=== PATIENT | female | born 1970 | race Caucasian/White ===

== ENCOUNTER → 2018-03-01 11:30 | Outpatient (CLI) | payer OTHER, SELFPAY ==
[2018-03-01 12:40] LABS: Absolute Lymphocyte Count 1.39 X10^3/ul (0.83-4.51); Absolute Neutrophil Count 3.9 X10^3/uL (2.0-7.7); Basophil# 0.02 X10^3/uL; Basophil% 0.3 % (0-1); Eosinophil# 0.07 X10^3/uL; Eosinophils% 1.2 % (0-5); Hematocrit 41.7 % (37-47); Hemoglobin 13.4 g/dl (12.0-15.0); Lymphocyte # 1.39 X10^3/ul (4.0); Lymphocyte % 23.1 % (19-41); Mean Corp Hgb Conc 32.1 g/gl (32-36); Mean Corpuscular Hgb 29.1 pg (27.0-32.0); Mean Corpuscular Volume 90.5 fL (81-99); Mean Platelet Vol. 12.5 fl (6.2-12.0); Monocyte# 0.66 X10^3/uL; Monocyte% 10.9 % (0-10); Neutrophil # 3.88 X10^3/uL (2.7-7.7); Neutrophil % 64.3 % (47-70); Platelet Count 220 K/mm3 (150-450); RBC Distribution Width CV 14.6 % (11.6-14.6); RBC Distribution Width SD 47.7 fl (35.1-43.9); Red Blood Count 4.61 M/mm3 (4.2-5.4)
[2018-03-01 12:42] LABS: POSITIVE COUNT NO; POSITIVE DIFFERENTIAL NO; POSITIVE MORPHOLOGY NO
[2018-03-01 13:19] LABS: Anion Gap 8 (5-15); BUN 12 mg/dL (7-18); BUN/Creat Ratio 16.5 RATIO (10-20); Calcium,Total 9.1 mg/dL (8.5-10.1); Chloride 108 mmol/L (98-107); Creatinine, Serum 0.73 mg/dL (0.55-1.02); EST Glomerular Filtration Rate 91 mL/min (>60); Est Glom Filt Rate - Afr Amer 110 mL/min (>60); Glucose 90 mg/dL (74-106); Magnesium 2.2 mg/dL (1.6-2.6); Potassium 4.3 mmol/L (3.5-5.1); Sodium Level 141 mmol/L (136-145); T4 Free Direct 1.09 ng/dL (0.76-1.46)
== END ==
PROVIDERS: Family Provider Family Medicine; PCP Family Medicine; Referring Provider Nurse Practitioner Family; Visit Provider Nurse Practitioner Family
DX: R00.2 Palpitations (principal)
CPT/HCPCS: 36415; 80048; 83735; 84439; 84443; 85025

== ENCOUNTER → 2018-03-01 13:12 | Outpatient (CLI) | payer OTHER, SELFPAY | PROVIDERS: Family Provider Family Medicine; PCP Family Medicine; Referring Provider Nurse Practitioner Family; Visit Provider Nurse Practitioner Family | DX: R00.2 Palpitations (principal) | CPT/HCPCS: 93225; 93226 ==

== ENCOUNTER → 2019-10-10 08:10 | Outpatient (CLI) | payer OTHER, SELFPAY ==
[2018-03-17 15:23] VITALS: BMI 30.9
[2019-10-10 10:25] LABS: Absolute Lymphocyte Count 1.54 X10^3/uL (0.83-4.51); Absolute Neutrophil Count 3.1 X10^3/uL (2.0-7.7); Basophil# 0.04 X10^3/uL; Basophil% 0.8 % (0-1); Eosinophils% 1.9 % (0-5); Hematocrit 37.7 % (37-47); Hemoglobin 11.9 g/dL (12.0-15.0); Lymphocyte # 1.54 X10^3/ul (4.0); Lymphocyte % 29.3 % (19-41); Mean Corp Hgb Conc 31.6 g/dL (32-36); Mean Corpuscular Hgb 27.9 pg (27.0-32.0); Mean Corpuscular Volume 88.5 fL (81-99); Mean Platelet Vol. 12.7 fl (6.2-12.0); Monocyte# 0.52 X10^3/uL; Monocyte% 9.9 % (0-10); NRBC Flagged by Analyzer 0 % (0-5); Neutrophil # 3.05 X10^3/uL (2.7-7.7); Neutrophil % 57.9 % (47-70); Platelet Count 218 K/mm3 (150-450); RBC Distribution Width SD 54.1 fl (35.1-43.9); Red Blood Count 4.26 M/mm3 (4.2-5.4); White Blood Count 5.3 K/mm3 (4.4-11.0)
[2019-10-10 10:50] LABS: ALB/GLOB Ratio 0.8 RATIO (0.9-2.4); AST(SGOT) 15 U/L (15-37); Alanine Aminotransfer ALT/SGPT 18 U/L (13-56); Albumin, Serum 3.1 g/dL (3.2-5.0); Alkaline Phosphatase 70 U/L (45-117); Anion Gap 6 (5-15); BUN 10 mg/dL (7-18); BUN/Creat Ratio 13.2 RATIO (10-20); Calcium,Total 8.8 mg/dL (8.5-10.1); Chloride 107 mmol/L (98-107); Creatinine, Serum 0.76 mg/dL (0.55-1.02); EST Glomerular Filtration Rate 86 mL/min (>60); Est Glom Filt Rate - Afr Amer 104 mL/min (>60); Globulin 4.1 g/dL (2.2-4.2); Glucose 89 mg/dL (74-106); Potassium 3.9 mmol/L (3.5-5.1); Protein, Total 7.2 g/dL (6.4-8.2); Sodium Level 141 mmol/L (136-145); T4 Free Direct 1.13 ng/dL (0.76-1.46); Thyroid Stim Hormone (TSH) 1.13 uIU/mL (0.358-3.74)
== END ==
PROVIDERS: PCP Family Medicine; Referring Provider Family Medicine; Visit Provider Family Medicine
DX: F41.9 Anxiety disorder, unspecified (principal); R53.83 Other fatigue; Z86.79 Personal history of other diseases of the circulatory system
CPT/HCPCS: 36415; 80053; 84439; 84443; 85025

== ENCOUNTER → 2020-07-30 10:11 | Outpatient (CLI) | payer OTHER, SELFPAY ==
[2020-07-30 12:26] LABS: Glucose 81 mg/dL (74-106)
[2020-07-30 12:33] LABS: Hemoglobin A1c 5.1 % (3.8-5.6)
== END ==
PROVIDERS: PCP Family Medicine; Referring Provider Family Medicine; Visit Provider Family Medicine
DX: R35.8 Other polyuria (principal)
CPT/HCPCS: 36415; 82947; 83036; 87086; 87088

== ENCOUNTER → 2021-12-21 | Outpatient (CLI) | payer OTHER, SELFPAY ==
--- NOTE | 2021-12-21 15:20 | BI_ITS ---
MAMMOGRAPHY - BILATERAL SCREENING REASON FOR EXAM: Female, 51 years old. Routine annual screening examination. PERTINENT HISTORY: Aunt with breast cancer. History of prior left breast biopsy. TECHNIQUE: Digital bilateral breast donato (3D mammographic acquisition) in the CC and MLO projections. 2-D mediolateral oblique (MLO) and craniocaudad (CC) views of both breasts were obtained. CAD: Full Field Digital Mammography with Computer Added Detection was performed. COMPARISON: Comparison is made with prior outside examination dated 11/08/2018. FINDINGS: Breast Composition: The breasts are heterogeneously dense, which may obscure small masses. Vision 1.5 cm x 1.7 cm well-defined nodule in the upper lateral aspect of the left breast. A tissue clip marker is seen within it. Stable small benign appearing bilateral axillary lymph nodes. No other significant abnormalities are identified. BI/SCRN MAMM (CAD)W/DONATO BILAT IMPRESSION: 1.5 cm x 1.7 cm well-defined nodule in the upper lateral aspect of the left breast. A tissue clip marker is seen within it. ASSESSMENT CATEGORY: BIRADS Category 2: Benign. A letter regarding these results will be sent to the patient by the facility within 30 days. Approximately 10% of breast cancers are not detected by mammography. A normal mammogram should not delay biopsy of a clinically suspicious abnormality. [id number] Electronically Signed: Luke Ugarte MD at 8:25 EDT ,
== END | disposition home or self-care (01) ==
PROVIDERS: PCP Family Medicine
DX: Z12.31 Encounter for screening mammogram for malignant neoplasm of breast (principal); N63.21 Unspecified lump in the left breast, upper outer quadrant; Z80.3 Family history of malignant neoplasm of breast
CPT/HCPCS: 77063; 77067

== ENCOUNTER → 2022-02-08 | Outpatient (CLI) | payer OTHER, SELFPAY ==
[2022-02-08 07:36] LABS: Absolute Lymphocyte Count 2.04 X10^3/uL (0.83-4.51); Absolute Neutrophil Count 2.3 X10^3/uL (2.0-7.7); Basophil# 0.03 X10^3/uL; Basophil% 0.6 % (0-1); Hematocrit 40.9 % (37-47); Hemoglobin 13.6 g/dL (12.0-15.0); Lymphocyte # 2.04 X10^3/ul (0.83-4.51); Lymphocyte % 41.1 % (19-41); Mean Corp Hgb Conc 33.3 g/dL (32-36); Mean Corpuscular Hgb 30.9 pg (27.0-32.0); Mean Platelet Vol. 11.5 fl (6.2-12.0); Monocyte# 0.53 X10^3/uL; Monocyte% 10.7 % (0-10); NRBC Flagged by Analyzer 0 % (0-5); Neutrophil # 2.25 X10^3/uL (2.7-7.7); Neutrophil % 45.4 % (47-70); Platelet Count 213 K/mm3 (150-450); RBC Distribution Width CV 13.2 % (11.6-14.6); RBC Distribution Width SD 44.9 fl (35.1-43.9)
[2022-02-08 08:08] LABS: ALB/GLOB Ratio 0.9 RATIO (0.9-2.4); AST(SGOT) 12 U/L (15-37); Alanine Aminotransfer ALT/SGPT 20 U/L (13-56); Albumin, Serum 3.3 g/dL (3.2-5.0); Alkaline Phosphatase 99 U/L (45-117); Anion Gap 8 (5-15); BUN 15 mg/dL (7-18); BUN/Creat Ratio 23.5 RATIO (10-20); Chloride 109 mmol/L (98-107); Cholesterol 199 mg/dL (200); Creatinine, Serum 0.64 mg/dL (0.55-1.02); EST Glomerular Filtration Rate 104 mL/min (>60); Est Glom Filt Rate - Afr Amer 125 mL/min (>60); Ferritin 29 ng/mL (8-252); Globulin 3.8 g/dL (2.2-4.2); Glucose 96 mg/dL (74-106); High Density Lipoprotein 81 mg/dL; Potassium 3.7 mmol/L (3.5-5.1); Protein, Total 7.1 g/dL (6.4-8.2); Sodium Level 145 mmol/L (136-145); Triglycerides 61 mg/dL; Very Low Density Lipoprotein 12 mg/dL (5-40)
== END | disposition home or self-care (01) ==
LOC: LAB 06:53
PROVIDERS: PCP Family Medicine; Visit Provider Family Medicine
DX: Z00.00 Encounter for general adult medical examination without abnormal findings (principal); I34.0 Nonrheumatic mitral (valve) insufficiency; R53.83 Other fatigue
CPT/HCPCS: 36415; 80053; 80061; 82728; 84443; 85025

== ENCOUNTER 2023-02-28 14:36 | Emergency (ER) | payer OTHER, SELFPAY ==
[2023-02-28 14:38] VITALS: BP 177/106; PULSE 107; RESP 16; TEMP 36.2; O2SAT 99; BMI 30.8
--- NOTE | 2023-02-28 15:27 | EKG12_ITS ---
Test Reason : Blood Pressure : / mmHG Vent. Rate : 101 BPM Atrial Rate : 101 BPM P-R Int : 180 ms QRS Dur : 086 ms QT Int : 352 ms P-R-T Axes : 053 031 055 degrees QTc Int : 456 ms Sinus tachycardia Nonspecific ST abnormality Abnormal ECG Confirmed by ELIZABETH ZIEGLER MD ([id number]), editor & co founder HUMBERTO REYES ([id number]) on 03/02/2023 6:48:58 AM Referred By: Confirmed By:ELIZABETH ZIEGLER MD
--- NOTE | 2023-02-28 15:28 | EX.ED.DYSGE1 ---
HPI History of Present Illness Chief Complaint: Palpitations Informant: patient Narrative Narrative: Patient was at work and had a sudden onset of palpitations racing heartbeat, she found the nurse and they put her on pulse oximetry which said her pulse was 230. She was taking some deep breaths and trying to maneuvers that the nurse had her do, but it was not going away so EMS was called. By the time they got there, the palpitations and racing resolved and she felt better. She was little lightheaded but without syncope, she was without dyspnea or chest discomfort. No recent illness or leg pain/swelling or recent travel. She is really concerned that her blood pressure was up when EMS checked it, 170s. For them, heart rate 108. She states that the total time of the episode may be lasted 10 minutes, she has had this happen before but it has been a long time and it never lasted that long. Never been documented on the monitor in the past. She has a history of mitral valve prolapse and is on metoprolol succinate 25 mg every morning, she missed one of the doses either yesterday or the day before she cannot remember but she took it this morning and has been drinking regular coffee, after having a hiatus from it and drinking decaf only. [facility] Medical History COVID-19 (~08/2019) Nonrheumatic mitral (valve) prolapse Nonrheumatic mitral valve regurgitation Palpitations Physical exam, pre-employment Home Medications paroxetine HCl 20 mg tablet 20 mg PO QDAY 12/20/17 [History Last Taken Unknown] norethindrone 1 mg-ethinyl estradiol 35 mcg tablet (Alyacen) 1 tab PO DAILY 06/04/20 [History Last Taken Unknown] metoprolol succinate 25 mg tablet,extended release 24 hr (Toprol XL) 25 mg PO DAILY #30 tabs 11/18/22 [Rx Last Taken Unknown] Allergy/AdvReac Type Severity Reaction Status Date / Time Penicillins Allergy Swelling Verified 02/28/23 14:42 venom-honey bee Allergy Swelling Verified 02/28/23 14:42 [bee venom (honey bee)] Family History Father COPD (chronic obstructive pulmonary disease) Sister Cancer lung, brain, adrenal Mother Colon cancer Social History Smoking Status: Never smoker alcohol intake: current alcohol intake frequency: holidays/special occasions only substance use type: does not use caffeine: Yes Type: carbonated beverages Number of servings: 2 ROS ROS ED Constitutional Constitutional ED: Denies chills or fever(s) Eyes Eyes: Denies change in vision or diplopia ENT ENT ED: Denies rhinorrhea or sore throat Cardiovascular Cardiovascular: Reports lightheadedness, palpitations and racing heartbeat; Denies chest pain, leg edema or syncope Respiratory/Chest Respiratory/Chest: Denies cough or dyspnea Gastrointestinal Gastrointestinal: Denies abdominal pain, diarrhea, nausea or vomiting Genitourinary Genitourinary ED: Denies dysuria or hematuria Musculoskeletal Musculoskeletal: Denies back pain or neck pain Integumentary Denies abscess or rash Neurologic Neurologic: Denies headache(s), paresthesias or weakness Psychiatric Psychiatric: Denies anxiety or suicidal thoughts EXAM Physical Exam Const Vital Signs: 02/28/23 14:38 02/28/23 14:45 02/28/23 14:45 Temperature 97.2 F L Temperature Source Oral Pulse Rate 107 H Respiratory Rate 16 Respiratory Effort Normal Respiratory Pattern Normal Normal Blood Pressure 177/106 H Blood Pressure Mean 129 Pulse Ox 99 Oxygen Delivery Method 02/28/23 15:53 Temperature Temperature Source Pulse Rate 96 Respiratory Rate 16 Respiratory Effort Respiratory Pattern Blood Pressure 151/97 H Blood Pressure Mean 115 Pulse Ox 99 Oxygen Delivery Method Room Air Positive well nourished and well developed General Appearance ED: well developed and NAD HEENT Reports moist mucous membranes normocephalic and atraumatic Eyes PERRL and EOMs intact bilaterally Neck full ROM and supple Resp normal respiratory effort and clear to auscultation bilaterally Cardio regular rate, regular rhythm and no murmurs GI non-tender and non-distended Auscultation: normoactive bowel sounds Palpation: soft Back/Spine no CVA tenderness General Back: other FROM Extremity normal to inspection General Extremety ED: Negative for edema, pulses abnormal or tenderness General Extremity: Negative for edema or pulses abnormal Neuro oriented x3, CN's II-XII intact bilaterally and no sensory deficits noted Sensorium / Orientation: awake and alert Motor Exam: strength 5/5 throughout Skin no rashes or lesions noted and no wounds MDM MDM MDM Narrative Medical decision making narrative: Basic labs are normal, her EKG is normal. Her tachycardia resolved with time, and she had no recurrent symptoms. 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 Did not feel irregular to her. She follows with cardiology. I would have her follow-up, continue her metoprolol, and it would not be unreasonable to go back to decaf coffee. In reviewing outpatient cardiology visit, she has a history of palpitations, the patient states being on metoprolol has helped that, she had rare ectopy on her Holter from 2018, she did not have any dysrhythmias although she indicates the symptoms have happened before just did not last this long. At this time I would not change any of her medications based on what I am seeing. History & Record Review Additional record(s) reviewed:: Prior outpatient record Lab Data Attestation: I reviewed the patient's lab results. Labs: Laboratory Results - last 24 hr 02/28/23 15:38 WBC 7.0 RBC 4.61 Hgb 14.1 Hct 42.1 MCV 91.3 MCH 30.6 MCHC 33.5 RDW Std Deviation 43.2 RDW Coeff of Kate 13.0 Plt Count 227 MPV 12.1 H Immature Gran % (Auto) 0.300 Neut % (Auto) 60.4 Lymph % (Auto) 28.1 [place] % (Auto) 9.2 Eos % (Auto) 1.4 Baso % (Auto) 0.6 Absolute Neuts (auto) 4.3 Absolute Lymphs (auto) 1.98 Nucleated RBC % 0 Sodium 143 Potassium 3.5 Chloride 112 H Carbon Dioxide 29.0 Anion Gap 2 L BUN 15 Creatinine 0.83 Estim Creat Clear Calc 67.69 Est GFR (MDRD) Af Amer 92 Est GFR (MDRD) Non-Af 76 BUN/Creatinine Ratio 18.0 Glucose 87 Calcium 9.0 Rhythm Strip Rhythm Strip: Sinus Tach Rate: 101 Ectopy: None EKG Initial EKG: Attestation: I personally reviewed and interpreted this EKG as follows: Interpretation: No Acute Injury Pattern and Sinus Tachycardia (Otherwise normal EKG) Prior: No Prior Discharge Plan Triage Chief Complaint: Palpitations Other Complaint: Hypertension ED Provider: Yvan Alex Dx/Rx/DC Orders Clinical Impression: Rapid palpitations Instructions: ED Understanding Supraventricular Tachycardia (SVT) Prescriptions: No Action paroxetine HCl 20 mg tablet 20 mg PO QDAY Alyacen (28) 1-35 mg-mcg tablet 1 tab PO DAILY metoprolol succinate [Toprol XL] 25 mg tablet extended release 24 hr 25 mg PO DAILY Qty: 30 11RF Primary Care Provider: Rhett Jain Referrals: Rhett Jain MD [Primary Care Provider] - Stephy Reyes PA [Med Staff - Adv Practice Prof] - As soon as possible (call for appt) Disposition Disposition: Home, Self Care
[2023-02-28] MEDS: 0.9% Normal Saline (500mL Bag) 500 ML 999 ML IV (15:46)
[2023-02-28 15:48] LABS: Absolute Lymphocyte Count 1.98 X10^3/uL (0.83-4.51); Absolute Neutrophil Count 4.3 X10^3/uL (2.0-7.7); Basophil# 0.04 X10^3/uL; Basophil% 0.6 % (0-1); Eosinophils% 1.4 % (0-5); Hematocrit 42.1 % (37-47); Hemoglobin 14.1 g/dL (12.0-15.0); Lymphocyte # 1.98 X10^3/ul (0.83-4.51); Lymphocyte % 28.1 % (19-41); Mean Corp Hgb Conc 33.5 g/dL (32-36); Mean Corpuscular Hgb 30.6 pg (27.0-32.0); Mean Corpuscular Volume 91.3 fL (81-99); Mean Platelet Vol. 12.1 fl (6.2-12.0); Monocyte# 0.65 X10^3/uL; Monocyte% 9.2 % (0-10); NRBC Flagged by Analyzer 0 % (0-5); Neutrophil # 4.25 X10^3/uL (2.7-7.7); Neutrophil % 60.4 % (47-70); Platelet Count 227 K/mm3 (150-450); RBC Distribution Width SD 43.2 fl (35.1-43.9); Red Blood Count 4.61 M/mm3 (4.2-5.4)
[2023-02-28 15:53] VITALS: BP 151/97; PULSE 96; RESP 16; O2SAT 99
[2023-02-28 16:10] LABS: Anion Gap 2 (5-15); BUN 15 mg/dL (7-18); Chloride 112 mmol/L (98-107); Creatinine, Serum 0.83 mg/dL (0.55-1.02); EST Glomerular Filtration Rate 76 mL/min (>60); Est Glom Filt Rate - Afr Amer 92 mL/min (>60); Estimated Creatinine Clearance 67.69 ml/min; Glucose 87 mg/dL (74-106); Potassium 3.5 mmol/L (3.5-5.1); Sodium Level 143 mmol/L (136-145)
[2023-02-28 16:17] VITALS: BP 156/97; PULSE 89; RESP 16; O2SAT 99
== END 2023-02-28 16:26 | disposition home or self-care (01) ==
PROVIDERS: Emergency Provider Emergency Medicine; PCP Family Medicine; Visit Provider Emergency Medicine
DX: R00.2 Palpitations (principal); Z86.16 Personal history of COVID-19
CPT/HCPCS: 80048; 85025; 93005; 96360; 99285; J7040; A4216

== ENCOUNTER 2023-03-06 11:44 | Emergency (ER) | payer OTHER, SELFPAY ==
[2023-03-06 11:45] VITALS: BP 150/100; PULSE 84; RESP 16; TEMP 36; O2SAT 100; BMI 29.6
[2023-03-06 11:55] VITALS: BP 166/95; PULSE 73; RESP 13; O2SAT 100
--- NOTE | 2023-03-06 12:11 | EKG12_ITS ---
Test Reason : CP Blood Pressure : / mmHG Vent. Rate : 069 BPM Atrial Rate : 069 BPM P-R Int : 126 ms QRS Dur : 084 ms QT Int : 388 ms P-R-T Axes : 015 -10 020 degrees QTc Int : 415 ms Normal sinus rhythm Nonspecific ST abnormality Abnormal ECG Confirmed by TUAN CHIANG, ZANE ([id number]), assistant film editor HUMBERTO REYES ([id number]) on 03/14/2023 7:05:22 AM Referred By: ARSLAN/ELEAZAR Confirmed By:DASH DICKERSON MD
--- NOTE | 2023-03-06 12:13 | EX.ED.UPPERE ---
HPI <KAYLA Robles - Last Filed: 03/06/23 13:15> History of Present Illness Chief Complaint: Upper Extremity Injury Narrative Narrative: Patient is a 52-year-old female with history of palpitations hypertension who presents to the emergency department for 3 to 4 days of left arm tightness especially in her forearm, she states that 1 to 2 hours prior to arrival she developed warmth and heat in her chest, and she is here for evaluation. She was seen here few days ago for palpitations, she was discharged home. She does follow-up with cardiology. Recently placed on amlodipine. Patient states she did not take her amlodipine today because of her symptoms. She is here for evaluation. She is also concerned that she may be having GERD symptoms. She denies any sharp chest pain, dyspnea. PFS <KAYLA Robles - Last Filed: 03/06/23 13:15> [facility] Medical History COVID-19 (~08/2019) Nonrheumatic mitral (valve) prolapse Nonrheumatic mitral valve regurgitation Palpitations Physical exam, pre-employment Home Medications paroxetine HCl 20 mg tablet 20 mg PO QDAY 12/20/17 [History Last Taken Unknown] norethindrone 1 mg-ethinyl estradiol 35 mcg tablet (Alyacen) 1 tab PO DAILY 06/04/20 [History Last Taken Unknown] amlodipine 5 mg tablet 5 mg PO DAILY #30 tabs 03/03/23 [Rx Last Taken Unknown] aspirin 81 mg tablet,delayed release (Adult Aspirin Regimen) 81 mg PO DAILY 03/03/23 [History Last Taken Unknown] metoprolol succinate 25 mg tablet,extended release 24 hr (Toprol XL) 25 mg PO BID This is a dose increase #60 tabs 03/04/23 [Rx Last Taken Unknown] Allergy/AdvReac Type Severity Reaction Status Date / Time Penicillins Allergy Swelling Verified 03/06/23 11:45 venom-honey bee Allergy Swelling Verified 03/06/23 11:45 [bee venom (honey bee)] Family History Father COPD (chronic obstructive pulmonary disease) Sister Cancer lung, brain, adrenal Mother Colon cancer Social History Smoking Status: Never smoker alcohol intake: current alcohol intake frequency: holidays/special occasions only substance use type: does not use caffeine: Yes Type: carbonated beverages Number of servings: 2 ROS <KAYLA Robles - Last Filed: 03/06/23 13:15> ROS ED ROS Narrative Constitutional: Negative for fever, chills, weight loss, weakness Eyes: Negative for vision loss, vision change, double vision ENT: Negative for any sore throat, ear pain, congestion Cardiovascular: Negative for any chest pain, tightness, palpitations. Positive for heat to her chest, epigastric area Respiratory: Negative for any cough, sputum production, hemoptysis, dyspnea, dyspnea on exertion, orthopnea Gastrointestinal: Negative for any abdominal pain, nausea, vomiting, diarrhea, constipation, blood in stool, blood in vomit : Negative for any urinary frequency, dysuria, retention, blood in urine Muscle skeletal: Negative for any muscle joint pain, stiffness, myalgias, arthralgias, neck pain, back pain. Positive for left arm tightness Neurological: Negative for any headache, syncope, numbness or tingling, dizziness Skin: Negative for any rashes, lumps, itching, abrasions, lacerations Psychiatric: Negative for any depression, anxiety, stress, suicidal ideation, homicidal ideation Hematologic: Negative for any easy bruising, excessive bruising, easy bleeding Allergies: Negative for any eczema, hives, rash EXAM <KAYLA Robles - Last Filed: 03/06/23 13:15> Physical Exam Narrative Exam Narrative: Vital signs reviewed. Patient is no obvious distress. HEET: Head normocephalic atraumatic, TMs clear bilaterally. Posterior pharynx is clear, moist mucous membranes. Nares clear bilaterally. Neck: Supple with no lymphadenopathy or tenderness. No signs of meningismus, negative jolt sign. Cardiac: Regular rate and rhythm no murmurs gallops or rubs, equal peripheral pulses bilaterally. Respiratory: Lungs clear to auscultation bilaterally. No chest tenderness. Abdomen: Soft, nontender, nondistended. No abdominal bruit or pulsatile masses. No hepatosplenomegaly Extremities: No peripheral edema, no signs of gross trauma or deformity. Active full range of motion of all extremities. Neuro: Cranial nerves II through XII intact, no focal neurological deficits. Skin: Clean dry and intact with no rash, purpura, petechiae, vesicles or pustules. Backs/flank: No CVA tenderness, no midline spinal tenderness, no deformity. Psych: Normal mood and affect. No SI, HI or acute psychosis. Const Vital Signs: 03/06/23 11:45 03/06/23 11:55 03/06/23 11:55 Temperature 96.8 F L Temperature Source Temporal Pulse Rate 84 73 Respiratory Rate 16 13 Respiratory Effort Normal Non-Labored Blood Pressure 150/100 H 166/95 H Blood Pressure Mean 116 118 Pulse Ox 100 100 Oxygen Delivery Method Room Air Room Air [facility] <KAYLA Rboles - Last Filed: 03/06/23 13:15> [facility] EKG Normal sinus rhythm: Attestation: I personally reviewed and interpreted this EKG as follows: Interpretation: Sinus Rhythm Comments: Normal sinus rhythm, rate of 69 bpm, WA 126 ms, QRS duration 84 ms, no acute ST elevation, no acute infarct noted. Treatment and Re-Evaluation Narrative: Patient appears generally well, patient appears nontoxic, vital signs are stable. Patient presents to the emergency department with complaints of left arm tightness, heat like feeling and warmth to her midsternal chest. Patient will receive a full work-up including cardiac enzymes, chest x-ray. This to be concerning for any ACS, KS. Patient's EKG was unremarkable. At a rate of [address] elevation. Patient received IV fluids, GI cocktail. Differential diagnosis also includes GERD. All radiologic examinations were read, reviewed by the emergency department attending. From these reads, a plan of care will be put in place. Patient CBC was unremarkable, patient's chemistries were unremarkable, patient's troponin was negative, dimer was negative chest x-ray was unremarkable this was interpreted by the ER physician. At this time, there is no evidence of any ACS, KS, pneumonia, PE. Patient will continue following up with cardiology, she is currently waiting for a 14-day monitor. She is to continue take her blood pressure daily as prescribed. Patient had minimal relief with the GI cocktail. At this time, I believe the patient is stable for discharge. Life-threatening injury/pathology was ruled out today. Patient instructed to return for any worsening symptoms. All questions were answered, patient stable for discharge. <Dr. Joleen Peguero, DO - Last Filed: 03/12/23 02:02> [facility] Treatment and Re-Evaluation Narrative: Patient appears generally well, patient appears nontoxic, vital signs are stable. Patient presents to the emergency department with complaints of left arm tightness, heat like feeling and warmth to her midsternal chest. Patient will receive a full work-up including cardiac enzymes, chest x-ray. This to be concerning for any ACS, KS. Patient's EKG was unremarkable. At a rate of [address] bpm. [address] elevation. Patient received IV fluids, GI cocktail. Differential diagnosis also includes GERD. All radiologic examinations were read, reviewed by the emergency department attending. From these reads, a plan of care will be put in place. Patient CBC was unremarkable, patient's chemistries were unremarkable, patient's troponin was negative, dimer was negative chest x-ray was unremarkable this was interpreted by the ER physician. At this time, there is no evidence of any ACS, KS, pneumonia, PE. Patient will continue following up with cardiology, she is currently waiting for a 14-day monitor. She is to continue take her blood pressure daily as prescribed. Patient had minimal relief with the GI cocktail. At this time, I believe the patient is stable for discharge. Life-threatening injury/pathology was ruled out today. Patient instructed to return for any worsening symptoms. All questions were answered, patient stable for discharge. I have personally performed a face to face assessment of the patient and have reviewed the WILFRID Note. I performed a substantive portion of the visit including all aspects of the following. My mercer findings include: History is patient is a 52-year-old female with history of ongoing palpitations presenting with a tightness of her left forearm and heat to her chest that started 1 to 2 hours prior to arrival. Addition she is noted palpitations for the past 3 to 4 days. She also she has had a similar tightness in her arm for the past 3 to 4 days. She had previous cardiac evaluation here which has been negative. She is currently waiting on a 14-day monitor. Cardiac work-up largely remarkable. She is mildly hypertensive in the ER however I do not think this is hypertensive emergency. Exam is benign. No reproducible pain on exam. Compartments are soft. Neuro vastly intact distally with good radial pulse. No acute ischemic EKG changes or elevation of her troponin. Patient is low risk for pulmonary emboli and her D-dimer is normal. I think CT is needed at this time to rule out pulmonary emboli. At this time I do not think she requires further cardiac monitoring. Discussed that differential could include a GI cause. Is started on [id number] omeprazole as well to see if this helps with her symptoms in addition to following up outpatient cardiology. Discussed at this time I think it safe for her to go home. She verbalized agreement understands plan. Discharged home in stable condition. Other additions or changes: [None] Discharge Plan Triage Chief Complaint: Upper Extremity Injury Other Complaint: Chest Other ED Midlevel Provider: Richi Mcgowan ED Provider: Joleen Peguero Dx/Rx/DC Orders Clinical Impression: Arm pain, Chest pain Instructions: ED Chest Pain, Noncardiac Prescriptions: No Action paroxetine HCl 20 mg tablet 20 mg PO QDAY Alyacen (28) 1-35 mg-mcg tablet 1 tab PO DAILY aspirin [Adult Aspirin Regimen] 81 mg tablet,delayed release (DR/EC) 81 mg PO DAILY amlodipine 5 mg tablet 5 mg PO DAILY Qty: 30 11RF metoprolol succinate [Toprol XL] 25 mg tablet extended release 24 hr 25 mg PO BID Qty: 60 11RF Primary Care Provider: Bettina Lemons Referrals: Bettina Lemons, DIRECTOR EMERGENCY DEPARTMENT-C [Primary Care Provider] - Activity Restrictions/Additional Instructions: Continue following up. Follow-up with cardiology. Return here for any worsening symptoms Disposition Disposition: Home, Self Care Discharge Date/Time: 03/06/23 13:29
--- NOTE | 2023-03-06 12:19 | RAD_ITS ---
EXAM: XR CHEST, 1 VIEW CLINICAL INDICATION: chest pain TECHNIQUE: Frontal view of the chest. COMPARISON: 11/05/2014. FINDINGS: LUNGS AND PLEURAL SPACES: Unremarkable. No consolidation or edema. No pneumothorax. No effusion. HEART: Unremarkable. Cardiac silhouette not enlarged. MEDIASTINUM: Central airways and mediastinal contour are unremarkable. BONES/JOINTS: Unremarkable. SOFT TISSUES: Unremarkable. RAD/Chest 1 View (Portable) IMPRESSION: No radiographic evidence of acute cardiopulmonary disease and unchanged when compared to 11/05/2014. Electronically Signed: Kevin Hobbs MD at 12:40 EST ,
[2023-03-06] MEDS: 0.9% Normal Saline (1000mL) 1,000 ML 1000 ML IV (12:21)
[2023-03-06] MEDS: Mag Hydrox/Al Hydrox/Simeth 30 ML UDC PO (12:21)
[2023-03-06 12:30] LABS: Absolute Lymphocyte Count 2.14 X10^3/uL (0.83-4.51); Basophil# 0.06 X10^3/uL; Basophil% 0.9 % (0-1); Eosinophil# 0.05 X10^3/uL; Eosinophils% 0.7 % (0-5); Hematocrit 42.2 % (37-47); Hemoglobin 13.8 g/dL (12.0-15.0); Lymphocyte # 2.14 X10^3/ul (0.83-4.51); Lymphocyte % 30.8 % (19-41); Mean Corp Hgb Conc 32.7 g/dL (32-36); Mean Corpuscular Hgb 29.9 pg (27.0-32.0); Mean Corpuscular Volume 91.5 fL (81-99); Mean Platelet Vol. 12.1 fl (6.2-12.0); Monocyte# 0.65 X10^3/uL; Monocyte% 9.4 % (0-10); NRBC Flagged by Analyzer 0 % (0-5); Neutrophil # 4.04 X10^3/uL (2.7-7.7); Neutrophil % 58.1 % (47-70); Platelet Count 221 K/mm3 (150-450); RBC Distribution Width CV 12.7 % (11.6-14.6); Red Blood Count 4.61 M/mm3 (4.2-5.4)
[2023-03-06 12:45] LABS: D-Dimer Quantitative (DVT/PE) < 0.27 FEU/ug/m (0.27-0.49)
[2023-03-06 12:50] LABS: ALB/GLOB Ratio 0.8 RATIO (0.9-2.4); AST(SGOT) 13 U/L (15-37); Alanine Aminotransfer ALT/SGPT 14 U/L (13-56); Albumin, Serum 3.2 g/dL (3.2-5.0); Alkaline Phosphatase 113 U/L (45-117); Anion Gap 8 (5-15); BUN 15 mg/dL (7-18); BUN/Creat Ratio 20.5 RATIO (10-20); Calcium,Total 8.9 mg/dL (8.5-10.1); Chloride 109 mmol/L (98-107); Creatinine, Serum 0.73 mg/dL (0.55-1.02); EST Glomerular Filtration Rate 88 mL/min (>60); Est Glom Filt Rate - Afr Amer 107 mL/min (>60); Estimated Creatinine Clearance 76.96 ml/min; Globulin 3.8 g/dL (2.2-4.2); Glucose 104 mg/dL (74-106); Lipase 29 U/L (13-75); Sodium Level 145 mmol/L (136-145); Troponin-I HS 6 pg/mL (3.0-54.0)
[2023-03-06 12:52] VITALS: BP 173/98; PULSE 80; RESP 15; O2SAT 100
[2023-03-06 12:55] LABS: CPK Total, Creatine Kinase 75 U/L (26-192)
[2023-03-06 13:18] VITALS: BP 182/99; PULSE 69; RESP 17; O2SAT 100
== END 2023-03-06 13:29 | disposition home or self-care (01) ==
PROVIDERS: Nurse Practitioner; Emergency Provider Emergency Medicine; PCP Nurse Practitioner Family; Visit Provider Emergency Medicine
DX: M79.602 Pain in left arm (principal); R07.9 Chest pain, unspecified; Z86.16 Personal history of COVID-19
CPT/HCPCS: 71045; 80053; 82550; 83690; 84484; 85025; 85379; 93005; 96360; 99284; J7030; A4216

== ENCOUNTER → 2023-03-15 | Outpatient (CLI) | payer OTHER, SELFPAY ==
--- NOTE | 2023-03-15 08:07 | ECHOD_ITS ---
Reason For Study: FATIGUE Procedure This was a 2D Doppler, Color Flow transthoracic echocardiogram. Exam performed in department. Left Ventricle Normal left ventricle. The estimated ejection fraction is 55-60 %. Right Ventricle Normal right ventricle. Normal systolic function. Atria Normal left atrium. Normal right atrium. Mitral Valve The mitral valve is structurally normal. No prolapse or stenosis seen. No mitral valve insufficiency. Tricuspid Valve Normal tricuspid valve. Mild tricuspid valve insufficiency. Aortic Valve Normal aortic valve. Mild (1+) aortic valve insufficiency. Pulmonic Valve The pulmonic valve is not well visualized. Great Vessels Normal aortic root. Pericardium/Pleural No pericardial effusion. MMode/2D Measurements & Calculations LVIDd: 4.3 cm IVSd: 1.2 cm LVOT diam: 2.1 cm LVIDs: 2.9 cm LVPWd: 0.89 cm LVOT area: 3.5 cm2 RVDd: 2.7 cm FS: 33.2 % Ao root diam: 3.5 cm LAV(MOD-bp): 57.5 ml LVAd ap4: 24.3 cm2 LAV(MOD-bp) Indexed: 31.5 ml/m2 LVLd ap4: 7.9 cm LAV(MOD-sp2): 61.8 ml EDV(MOD-sp4): 62.0 ml LAV(MOD-sp4): 47.3 ml EDV(sp4-el): 63.6 ml LVAs ap4: 13.7 cm2 LVLs ap4: 6.2 cm ESV(MOD-sp4): 26.9 ml ESV(sp4-el): 25.7 ml EF(MOD-sp4): 56.6 % EF(sp4-el): 59.6 % SV(MOD-sp4): 35.1 ml SV(sp4-el): 37.9 ml LA A4 area: 18.8 cm2 LA dimension(2D): 3.1 cm RA A4 area: 15.9 cm2 TAPSE: 2.4 cm Time Measurements MV dec time: 0.22 sec Doppler Measurements & Calculations MV E max jarrett: 62.4 cm/sec Lat Peak E' Jarrett: 14.0 cm/sec Med Peak E' Jarrett: 6.7 cm/sec MV A max jarrett: 67.9 cm/sec E/E' lat: 4.5 E/E' med: 9.3 MV E/A: 0.92 MV V2 max: 80.4 cm/sec Ao V2 max: 143.2 cm/sec MV max P.6 mmHg MV dec slope: 281.0 cm/sec2 Ao max P.2 mmHg MV V2 mean: 53.4 cm/sec Ao V2 mean: 100.3 cm/sec MV mean P.2 mmHg Ao mean P.6 mmHg MV V2 VTI: 30.3 cm Ao V2 VTI: 33.1 cm AV (velocity ratio): 0.61 MVA(VTI): 2.3 cm2 DIEGO(I,D): 2.1 cm2 DIEGO(V,D): 2.5 cm2 AI max jarrett: 542.2 cm/sec LV V1 max: 103.9 cm/sec SV(LVOT): 69.4 ml AI max P.6 mmHg LV V1 max P.3 mmHg LV V1 mean P.5 mmHg AI dec slope: 188.5 cm/sec2 LV V1 mean: 74.3 cm/sec AI P1/2t: 842.4 msec LV V1 VTI: 20.1 cm PA V2 max: 100.6 cm/sec TR max jarrett: 216.2 cm/sec PA V2 mean: 62.2 cm/sec TR max P.7 mmHg ECHO/Echo Complete Interpretation Summary The estimated ejection fraction is 55-60 %. Nursing can change from prior echocardiogram Ordering Physician: Stephy Reyes Referring Physician: Stephy Reyes Performed By: Helena Lance RCS
--- NOTE | 2023-03-15 17:09 | STRESSREP ---
Stress Test Report Treadmill myocardial perfusion stress test. Indication; Patient is 52-year-old female with near syncopal episode 2 months ago Also had a history of mitral valve prolapse, mitral valve regurgitation and Covid 19 Stress protocol: Resting EKG demonstrates. Normal sinus rhythm. Patient exercised according to the Fran protocol for 6 minutes Achieving a work level of maximum METS of 7.0 The resting heart rate of 64 bpm, navid to a maximal heart rate of 169 bpm This value represented 101% of the maximal age predicted heart rate. The resting blood pressure of 132/92 mmHg. Navid to a maximal blood pressure of 172/92 mmHg. Exercise test was stopped due to target heart rate achieved. Patient had symptoms of dyspnea no symptoms of chest pain reported Stress EKG showed[, no significant change from the resting EKG, with maximum heart rate of 107bpm. Arrhythmia: No arrhythmia demonstrated Symptoms: Patient had no symptoms of chest pain Blood pressure at rest: [132/62 blood pressure at the end of stress: 124/62] Myocardial perfusion protocol. 11.5 mCi ]of Technetium 99m Sestamibi was injected at rest. Following maximal stress, 35 mCi ]of Technetium 99m sestamibi was injected. Stress images were obtained stress and rest images were reconstructed and compared in the short axis vertical and horizontal long axis. Gated images were also obtained Perfusion SPECT analysis: Review of the images demonstrate normal uptake of sestamibi at rest, post stress images demonstrate similar uptake of sestamibi to the resting images, homogeneous tracer uptake With no evidence of reversible myocardial ischemia. Delayed Gated SPECT analysis: Normal LV systolic function Normal calculated ejection fraction Conclusion: Negative treadmill sestamibi myocardial fusion study for significant ischemia Normal LV systolic function and normal LV wall motion Pushpa Gonzáles MD,FACC,[facility]
== END | disposition home or self-care (01) ==
PROVIDERS: PCP Nurse Practitioner Family; Referring Provider Physician Assistant Medical; Visit Provider Physician Assistant Medical
DX: I34.0 Nonrheumatic mitral (valve) insufficiency (principal); I34.1 Nonrheumatic mitral (valve) prolapse; R06.09 Other forms of dyspnea; R00.2 Palpitations; R53.83 Other fatigue; R55 Syncope and collapse
CPT/HCPCS: 78452; 93017; 93306; A9500; A4216

== ENCOUNTER → 2025-03-14 | Outpatient (CLI) | payer MEDICAID, SELFPAY ==
--- OUTSIDE RECORDS SUMMARY | 2025-03-14 10:00 | XMS RPT_ITS | CCD ---
Author Organization [facility] Care Team Providers Care [employer] Psychometrist Name Role Phone Farhana Coffman Unavailable Unavailable Farhana Coffman Unavailable Unavailable RHETT JAIN MD Primary Care Physician KAYLA Lemons Primary Care Provider Dr. Pushpa Gonzáles Attending Provider [phone] Jessee Alan DO Primary Care Provider JESSEE ALAN Primary Care Unavailable Cristo MD UROLOGIST-C, Bettina Primary Care Physician Garo CHIANG, Dr. Orlando Attending Physician Cristo MORGAN-C, Bettina Referring Provider Kaushik Mayorga Attending Physician Kaushik Mayorga Attending Unavailable Bettina Lemons Primary Care Unavailable Bettina Lemons Referring Unavailable Freddie Chauhan Attending Unavailable Bettina Lemons Primary Care Unavailable Cristo, Bettina Referring Unavailable Freddie Chauhan Attending Physician Allergies Allergy Classification Reported Allergen(s) Allergy Type Date of Onset Reaction(s) Facility (4 sources) apis mellifera venom; Translations: [BEE STINGS] allergy to substance 5 swelling [facility] Work Phone: (4 sources) penicillin; Translations: [penicillin] drug allergy 5 Unknown (qualifier value) [facility] Work Phone: (7 sources) Penicillins Allergy to substance 1 Swelling [facility] (7 sources) venom-honey bee Allergy to substance 1 Swelling [facility] (1 source) Penicillins Drug Allergy 5 Swelling [facility] (1 source) Penicillins Drug allergy (disorder) 5 [facility] (1 source) venom-honey bee Drug allergy (disorder) 5 [facility] Medications Current Medications Medication Drug Class(es) Dates Sig (Normalized) Sig (Original) amLODIPine 5 mg oral tablet (8 sources) Dihydropyridine Calcium Channel Landon Start: 03-03-2023 End: 02-06-2024 take 1 tablet by mouth once daily aspirin 81 mg delayed release oral tablet (6 sources) Platelet Aggregation Inhibitor, Nonsteroidal Anti-inflammatory Drug Start: 03-03-2023 take 1 tablet by mouth once daily cefdinir 300 mg oral capsule (1 source) Cephalosporin Antibacterial Start: 02-08-2025 End: 02-18-2025 take 1 capsule by mouth twice daily Cefdinir 300 mg capsule Discontinued 300 mg PO TWICE A DAY 20 10 February 08, 2025 12:00am February 17, 2025 12:00am February 18, 2025 12:08am 24 hr metoprolol succinate 25 mg extended release oral tablet (20 sources) beta-Adrenergic [place]andon Start: 03-04-2023 End: 03-20-2024 take 1 tablet by mouth twice daily Start: 10-26-2022 End: 10-26-2022 take 1 tablet by mouth once daily Metoprolol Tartrate 25 mg tablet Discontinued 25 mg PO DAILY October 26, 2022 3:41pm October 26, 2022 3:48pm Start: 10-26-2022 End: 03-04-2023 take 1 tablet by mouth once daily Metoprolol Succinate (Toprol Xl) 25 mg tablet extended release 24 hr Discontinued 25 mg PO DAILY 30 November 18, 2022 1:05pm March 04, 2023 2:10pm Start: 06-04-2020 End: 10-26-2022 take 1 tablet by mouth twice daily Metoprolol Tartrate 25 mg tablet Discontinued 25 mg PO TWICE A DAY 180 January 16, 2021 1:17pm October 26, 2022 3:42pm Start: 06-04-2020 End: 06-04-2020 take 1 tablet by mouth once daily Metoprolol Tartrate 25 mg tablet Discontinued 25 mg PO DAILY June 04, 2020 4:39pm June 04, 2020 5:11pm Start: 03-17-2018 End: 06-04-2020 Metoprolol Tartrate 25 mg ta blet Discontinued 12.5 mg PO TWICE A DAY 90 January 02, 2020 10:50am June 04, 2020 4:39pm Start: 03-17-2018 End: 06-04-2020 take 12.5 mg by mouth twice daily Metoprolol Tartrate Discontinued 12.5 MG PO TWICE A DAY January 02, 2020 9:50am June 04, 2020 3:39pm Start: 03-07-2018 End: 03-17-2018 take 1 tablet by mouth twice daily Metoprolol Tartrate 25 mg tablet Discontinued 25 mg PO TWICE A DAY 60 March 07, 2018 1:00am March 17, 2018 4:40pm metroNIDAZOLE 500 mg oral tablet (1 source) Nitroimidazole Antimicrobial Start: 06-16-2021 End: 06-23-2021 Flagyl 500 mg oral tablet Dose : 500 mg = 1 tab(s), Oral, BID, do not drink alcohol may take with food to minimize abdominal discomfort, X 7 day(s), # 14 tab(s), 0 Refill(s), 06/23/21 9:48:00 EST, Pharmacy: [facility]/pharmacy #[id number], 162, cm, 06/15/21 15:20:00 EST, Height, 74.6, k... Start Date: 06/16/21 Stop Date: 06/23/21 Status: Ordered PARoxetine hydrochloride 10 mg oral tablet (17 sources) Serotonin Reuptake Inhibitor Start: 04-11-2023 take 1 tablet by mouth once daily Start: 04-01-2020 PARoxetine 20 mg oral tablet Dose : 10 mg = 0.5 tab(s), Oral, Daily, 0 Refill(s) Start Date: 04/01/20 Status: Ordered Start: 12-20-2017 End: 04-11-2023 take 1 tablet by mouth once daily Paroxetine Hcl 20 mg tablet Discontinued 20 mg PO daily December 20, 2017 12:00am April 11, 2023 5:17pm Start: 10-29-2014 take 1 tablet by hortencia once daily PAROXETINE HCL 10 MG TABS One tablet by mouth daily PAROXETINE HCL [id number] Nery Blackburn RN Start: 10-29-2014 take 1 tablet by hortencia th once daily PAROXETINE HCL 20 MG TABS One tablet by mouth daily PAROXETINE HCL [id number] Richi Palma MD Completed/Discontinued Medications Medication Drug Class(es) Dates Sig (Normalized) Sig (Original) azithromycin 250 mg oral tablet (2 sources) Macrolide Antimicrobial Start: 01-21-2025 End: 02-08-2025 Azithromycin 250 mg tablet Discontinued 250 mg PO .COMPLEX 12 0 January 21, 2025 12:00am February 08, 2025 2:28pm 2 tablets (500 mg) on day 1, then 1 tablet daily on days 2 through 11 Black Cohosh Root Extract (2 sources) Start: 10-10-2023 End: 01-21-2025 take 1 capsule by mouth once daily Black Cohosh Root Extract 40 mg capsule Discontinued 40 mg PO DAILY October 10, 2023 12:00am January 21, 2025 3:51pm Norethindrone-Ethin Estradiol (7 sources) Estrogen Start: 06-04-2020 End: 04-11-2023 Norethindrone-Ethi n Estradiol (Alyacen 1/35 (28)) 1-35 mg-mcg tablet Discontinued 1 {tbl} PO DAILY June 04, 2020 1:00am April 11, 2023 5:18pm Start: 06-04-2020 take [id number] 2857 ug by mouth once daily Norethindrone-Ethin Estradiol (Alyacen 1/35 (28)) 1-35 mg-mcg tablet Active 1 TABLET PO DAILY June 04, 2020 12:00am Start: 06-04-2020 take [id number] 2857 ug by mouth once daily Norethindrone-Ethin Estradiol (Alyacen 1/35 (28)) 1-35 mg-mcg tablet Active 1 TABLET PO DAILY June 04, 2020 1:00am ketoconazole 20 mg/ml topical cream (2 sources) Azole Antifungal Start: 01-23-2024 End: 05-12-2024 ketoconazole (NIZORAL) 2 % cream APPLY TO BOTH FEET DAILY FOR 30 DAYS 01/23/2024 05/12/2024 Discontinued Lopressor 25mg--USE metoprolol tartrate 25 mg oral tablet (1 source) Start: 06-15-2021 take 1 tablet by mouth twice daily Lopressor 25mg--USE metoprolol tartrate 25 mg oral tablet TAKE 1/2 TABLET BY MOUTH TWICE DAILY Start Date: 06/15/21 Status: Ordered terbinafine 250 mg oral tablet (2 sources) Allylamine Antifungal Start: 01-23-2024 End: 05-12-2024 take 1 tablet by mouth once terbinafine HCl (LAMISIL) 250 mg tablet Take 1 tablet by mouth every afternoon. 01/23/2024 05/12/2024 Discontinued Problems Active Problems Problem Classification Problem Date Documented Da te Episodic/Chronic Administrative/social admission (7 sources) Patient encounter status; Translations: [Encounter for pre-employment examination] 10-22-2020 Episodic Benign neoplasm of uterus (2 sources) Uterine leiomyoma 04-01-2020 Episodic Cardiac dysrhythmias (14 sources) Palpitations; Translations: [Palpitations] Onset: 10-29-2014 10-29-2014 Episodic Essential hypertension (2 sources) Hypertensive disorder; Translations: [Essential (primary) hypertension] 10-10-2023 Chronic Genitourinary symptoms and ill-defined conditions (2 sources) Incontinence; Translations: [Mixed incontinence] 11-27-2024 Chronic Genitourinary symptoms and ill-defined conditions (2 sources) Nocturia; Translations: [Nocturia] 11-27-2024 Episodic Heart valve disorders (16 sources) Mitral valve prolapse; Translations: [Nonrheumatic mitral (valve) prolapse] Onset: 10-29-2014 10-29-2014 Chronic Malaise and fatigue (6 sources) Fatigue; Translations: [Other fatigue] Onset: 10-31-2014 10-31-2014 Episodic Menopausal disorders (2 sources) Atrophy of vagina; 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 vaginitis] 11-27-2024 Chronic Mycoses (2 sources) Candidiasis of vagina 04-01-2020 Episodic Nonspecific chest pain (6 sources) Tight chest; Translations: [Chest pain] Onset: 10-29-2014 10-29-2014 Episodic Other connective tissue disease (4 sources) Pain in upper limb; Translations: [Pain in arm, unspecified] 03-06-2023 Episodic Other diseases of bladder and urethra (2 sources) Overactive bladder; Translations: [Overactive bladder] 11-27-2024 Chronic Other ear and sense organ disorders (1 source) Impacted cerumen in right ear; Translations: [Impacted cerumen, right ear] 03-09-2024 Episodic Other ear and sense organ disorders (1 source) Otalgia, right ear; Translations: [Otalgia, unspecified] 05-12-2024 Episodic Other female genital disorders (2 sources) Dysplasia of cervix 04-01-2020 Episodic Other lower respiratory disease (4 sources) Dyspnea on exertion; Translations: [Other forms of dyspnea] 03-03-2023 Episodic Other screening for suspected conditions (not mental disorders or infectious disease) (2 sources) Abnormal cervical Papanicolaou smear 04-01-2020 Episodic Other upper respiratory infections (4 sources) Acute frontal sinusitis; Translations: [Acute frontal sinusitis, unspecified] 01-21-2025 Episodic Otitis media and related conditions (5 sources) Acute right otitis media; Translations: [Otitis media, unspecified, right ear] 01-21-2025 Episodic Prolapse of female genital organs (2 sources) Incomplete uterovaginal prolapse; Translations: [Incomplete uterovaginal prolapse] 11-27-2024 Chronic Syncope (4 sources) Near syncope; Translations: [Syncope and collapse] 03-03-2023 Episodic Past or Other Problems Problem Classification Problem Date Documented Da te Episodic/Chronic Other lower respiratory disease (2 sources) Dyspnea; Translations: [Shortness of breath] Onset: 10-29-2014 10-29-2014 Episodic Other nutritional; endocrine; and metabolic disorders (6 sources) Body mass index (BMI) 29.0-29.9, adult; Translations: [Body mass index (BMI) 28.0-28.9, adult] Onset: 10-31-2014 Resolved: 12-11-2014 12-11-2014 Episodic Results Test Name Value Interpretation Reference Range Facility Urgent Care Visit Reporton 1 Urgent Care Visit Report [facility] [address], [address] [place] [address] OFFICE VISIT Date of Service: 02/08/25 MR#: [id number] Acct: [id number] Name: SRINIVASA PINEDA Rep #: [id number] : 1970 Provider: RUT Tai Age/Sex: 54/F Location: [facility] Status: Signed Intake Vital Signs 01/21/25 15:51 02/08/25 14:27 Height 5 ft 4 in Weight: 167 lb BMI 28.6 BP 130/82 H 108/68 Blood Pressure Location Lt brachial Lt brachial Position Sitting Sitting Respiration 15 Pulse 75 76 Pulse Source Monitor NIBP Temp 98.6 F 98.3 F Temp Source Oral Oral Pulse Oximetry (%) 98 96 Oxygen Delivery Method room air room air Intake Visit Reasons: CONCERN FOR EARS PLUGGED Chief Complaint: right ear plugged Grant Administrator Required: No Is patient in pain?: No Allergies Penicillins Allergy (Verified 02/08/25 14:28) Swelling venom-honey bee (bee venom (honey bee)) Allergy (Verified 02/08/25 14:28) Swelling Medications ???Medication ???Instructions ???Recorded ???Confirmed ???Type aspirin 81 mg tablet,delayed 81 mg PO DAILY 03/03/23 01/21/25 H istory release (Adult Aspirin Regimen) paroxetine HCl 10 mg tablet 10 mg PO DAILY 04/11/23 01/21/25 H istory amlodipine 5 mg tablet 5 mg PO DAILY #90 TABLETS 02/06/24 01/21/25 Rx metoprolol succinate 25 mg 25 mg PO BID #180 TABLETS 03/20/24 01/21/25 Rx tablet,extended release 24 hr cefdinir 300 mg capsule 300 mg PO BID 10 days #20 caps 02/2302/08/25 Rx Is last menstrual period known: No Post menopausal: Yes Patient : No Have you fallen in the past year?: No Nurse's Note: right ear plugged x 2 weeks. denies pain, drainage, fever. pt treated for sinus infection approx 1-1 1/2 weeks ago with zpak and informed that should help with ear. all other s/s have resolved [facility] Medical History (Updated 01/21/25 @ 17:01 by Kaushik BETTENCOURT, PA) Acute frontal sinusitis, unspecified Acute otitis media, right Physical exam, pre-employment COVID-19 ( 08/2019) Nonrheumatic mitral (valve) prolapse Palpitations Nonrheumatic mitral valve regurgitation Family History Father COPD (chronic obstructive pulmonary disease) Sister Cancer lung, brain, adrenal Mother Colon cancer Social History (Updated 11/27/24 @ 10:31 by Reshma Harris) Smoking Status: Never smoker alcohol intake: never substance use type: does not use caffeine: Yes Type: carbonated beverages Number of servings: 2 and coffee what type of physical activity do you participate in: none do you feel safe at home: Yes HPI HPI Chief Complaint: right ear plugged Details: SRINIVASA PINEDA, is a 54 F who presents to the office today for complaint of ongoing right ear plugging sensation. Patient was here approximately 3 weeks ago for a sinus infection and right ear infection and was given azithromycin. Patient states that all of her symptoms are other than the right ear plugging and hearing loss has improved. She denies otorrhea. No fever, chills or sweats. No cough, shortness of breath or difficulty breathing. No other associated symptoms or alleviating/aggravatin g factors. ROS Const Constitutional: No other (as above) Exam Const General: cooperative and healthy appearing [facility] Head: normal to inspection Ears: hearing grossly normal bilaterally, EAC's normal and TM abnormal bulging on the right and with fluid behind the TM on the right Nose: nasal discharge purulent Mouth: oral mucosae normal Throat: abnormal tonsil bilaterally erythema and hypertrophy 1+ and postnasal drainage Resp Effort Inspection: normal respiratory effort Auscultation: Bilateral: Clear to Auscultation Cardio Rate: regular rate Rhythm: regular rhythm Neuro General: patient alert Psych Appearance: grossly normal Mental Status: mental status grossly normal Coding Level of Care Code Off vis,est,level 3 Diagnoses Acute otitis media, right H66.91 Assessment and Plan Assessment and Plan (1) Acute otitis media, right: Status: Acute Plan: Cefdinir as prescribed today. Encouraged to get plenty of rest, drink lots of clear liquids, and use Tylenol or Ibuprofen (unless contraindicated) for fever and comfort. Patient also educated on other symptomatic management techniques. To be seen in 7-10 days if no improvement; sooner if worsening of symptoms. Patient advised of potential red flags and when appropriate to report to the ED. Patient verbalized understanding and agreement with all the above. Medications: New cefdinir 300 mg PO BID 20 caps 0RF 10 days Clinical Quality Measures Falls Risk Screening/Assistive Devices Have you fallen in the past year?: No 02/08/25 1433 Date (more content not included)... Normal [facility] Urgent Care Visit Reporton 0 01-21-2025 Urgent Care Visit Report [facility] [address] , [address] [place] [address] OFFICE VISIT Date of Service: 01/21/25 MR#: [id number] Acct: [id number] Name: SRINIVASA PINEDA Rep #: [id number] : 1970 Provider: RUT Valdivia Age/Sex: 54/F Location: [facility] Status: Signed Intake Vital Signs 10/10/23 15:02 01/21/25 15:51 Height 5 ft 4 in 5 ft 4 in Weight: 167 lb BMI 28.6 BP 130/82 H Blood Pressure Location Lt brachial Position Sitting Pulse 75 Pulse Source Monitor Temp 98.6 F Temp Source Oral Pulse Oximetry (%) 98 Oxygen Delivery Method room air Intake Visit Reasons: HEAD CONGESTION Chief Complaint: Congestion Accompanied by: Self Allergies Penicillins Allergy (Verified 01/21/25 15:47) Swelling venom-honey bee (bee venom (honey bee)) Allergy (Verified 01/21/25 15:47) Swelling Medications ???Medication ???Instructions ???Recorded ???Confirmed ???Type aspirin 81 mg tablet,delayed 81 mg PO DAILY 03/03/23 01/21/25 H istory release (Adult Aspirin Regimen) paroxetine HCl 10 mg tablet 10 mg PO DAILY 04/11/23 01/21/25 H istory amlodipine 5 mg tablet 5 mg PO DAILY #90 TABLETS 02/06/24 01/21/25 Rx metoprolol succinate 25 mg 25 mg PO BID #180 TABLETS 03/20/24 01/21/25 Rx tablet,extended release 24 hr azithromycin 250 mg tablet 250 mg PO .COMPLEX #12 tabs 01/21/25 Rx Nurse's Note: head pressure, sinus congestion, runny nose. [place] like was going to pass out at work yesterday. HR was 202 last night, then came down to 105. Pt stated does have HX of heart issues. [facility] Medical History (Updated 01/21/25 @ 17:01 by Kaushik Mohan PA, PA) Acute frontal sinusitis, unspecified Acute otitis media, right Physical exam, pre-employment COVID-19 ( 08/2019) Nonrheumatic mitral (valve) prolapse Palpitations Nonrheumatic mitral valve regurgitation Family History Father COPD (chronic obstructive pulmonary disease) Sister Cancer lung, brain, adrenal Mother Colon cancer Social History (Updated 11/27/24 @ 10:31 by Reshma Harris) Smoking Status: Never smoker alcohol intake: never substance use type: does not use caffeine: Yes Type: carbonated beverages Number of servings: 2 and coffee what type of physical activity do you participate in: none do you feel safe at home: Yes HPI HPI Chief Complaint: Congestion Details: SRINIVASA PINEDA, is a 54 F who presents to the office today for 3 day AD pain, sinus pressure. Describing copious amount purulent postnasal drip. No complaints of fever, chills, sweats, lightheadedness/dizzin ess, nausea/vomiting. No complaints of chest pain/shortness of breath/dyspnea on exertion. No [id number] medications have been taken to assist. Non-smoker. No close contacts with similar complaints. No other associated symptoms and no other alleviating or aggravating factors. ROS Const Constitutional: No other (as above) Exam Const General: cooperative, healthy appearing and no acute distress Orientation: alert and awake [facility] Head: normal to inspection Ears: hearing grossly normal bilaterally, external ears normal, TM normal on the left, EAC's normal and TM abnormal bulging on the right and erythematous on the right Nose: external nose normal, nares normal, septum normal and no nasal discharge Face and sinus: normal facial exam, sinuses nontender (Note describing frontal headache upon palpation forehead) and face symmetric Mouth: oral mucosae normal, lip normal, tongue normal, oropharynx normal and moist mucous membranes Throat: posterior oropharynx normal, tonsils normal, uvula midline and no postnasal drainage Eyes General: appearance normal, both eyes and all related structures Neck Neck: normal visual inspection, no meningeal signs, supple and lymphadenopathy (R>L anterior cervical lymph node swelling/tender to palpation) Neck mass: No Thyroid: thyroid normal Chest Chest palpation inspection: normal inspection of the chest Resp Effort Inspection: normal respiratory effort and able to speak in complete sentences Auscultation: Bilateral: Clear to Auscultation Cardio Palpation: normal PMI Rate: regular rate Rhythm: regular rhythm Heart Sounds: S1 normal, S2 normal, no gallops, no murmurs and no rubs Pulses: radial pulses present GI Inspection: normal to inspection Palpation: soft and no hepatosplenomegaly Skin General: no rashes or lesions noted Neuro General: patient alert and patient awake Cognition: normal cognition Speech: speech normal Extrem General: normal to inspection Psych Appearance: grossly normal Mental Status: mental status grossly normal Mood: congruent mood Affect: normal affect Speech and Movement: speech and m (more content not included)... Normal [facility] [place] 05-12-2024 CN Office Visit ([facility] ) SRINIVASA PINEDA ([id number]) 1970 F Date Time Provider Department 05/12/24 2:30 PM RENE GAYLE [facility] During your visit today, we recorded the following information about you: Temperature Pulse Respiration Blood pressure 97.9 degrees 81/minute 18/minute 123/79 Weight 76.2 kg Rene Gayle MD 05/12/2024 3:07 PM Signed Patient presents with: Ear Pain: R ear pain, runny nose, cough HPI: Had a URI a few weeks ago. She is concerned about having fluid in her right ear because of ongoing discomfort. She had fluid persist behind her eardrum after a cold earlier last year. Positive symptoms: Double cough, right earache, Rhinorrhea, Negative symptoms: Shortness of breath, Chest pain, Sore throat, Fever, hearing change OTC: none recently. Her blood pressure was elevated when checked today and went higher after rechecking-Currently normal. MEDICATIONS: Current Outpatient Medications Medication Sig amLODIPine (NORVASC) 5 mg tablet Take 1 tablet by mouth every afternoon. PARoxetine (PAXIL) 10 mg tablet Take 1 tablet by mouth every afternoon. metoprolol succinate ER (TOPROL XL) 25 mg 24 hr tablet Take 25 mg by mouth two times a day. aspirin, enteric coated (ASPIRIN, ENTERIC COATED) 81 mg EC tablet Take 81 mg by mouth once daily. No current facility-administered medications for this visit. ALLERGIES: ALLERGIES Allergen Reactions Penicillins Swelling VITALS: BP 123/79 Pulse 81 Temp 36.6 ?C (97.9 ?F) Resp 18 Wt 76.2 kg (167 lb 15.9 oz) SpO2 100% PHYSICAL EXAM: GEN: Pleasant, in no acute distress. HEENT: PERRL, EOMI, conjunctiva clear Ears: canals clear. TMs without erythema, bulge, or effusion Sinuses: non-tender frontal sinus, non-tender maxillary sinuses Throat: moist mucous membranes, no erythema, no exudate Neck: supple, no thyromegaly, no lymphadenopathy HEART: regular rate, regular rhythm, no murmurs LUNGS: clear to auscultation, no wheezes or crackles, no increased WOB ASSESSMENT/PLAN: 1. Otalgia, right - ICD9: 388.70, ICD10: H92.01 Reassured of benign ear exam. Follow-up with concerning symptoms. Normal blood pressure reading. Rene Gayle MD Allergies As of Date: 05/12/2024 Noted Allergy Reaction PENICILLINS 05/12/2024 7 - Swelling Date Reviewed: 05/12/2024 Reviewed by: Melissa Monique MA - Fully Assessed Reason for Visit: Ear Pain [817] Cmt: R ear pain, runny nose, cough Primary Visit Diagnosis:Otalgia, right [H92.01] Prescriptions as of 05/12/2024 - amLODIPine (NORVASC) 5 mg tablet Take 1 tablet by mouth every afternoon. - PARoxetine (PAXIL) 10 mg tablet Take 1 tablet by mouth every afternoon. - metoprolol succinate ER (TOPROL XL) 25 mg 24 hr tablet Take 25 mg by mouth two times a day. - aspirin, enteric coated (ASPIRIN, ENTERIC COATED) 81 mg EC tablet Take 81 mg by mouth once daily. Problem List As Of Date: 05/12/2024 (None) Medications Discontinued During This Encounter Prescriptions - ketoconazole (NIZORAL) 2 % cream (Discontinued) Reported on 05/12/2024 - terbinafine HCl (LAMISIL) 250 mg tablet (Discontinued) Reported on 03/09/2024 Level of Service: OFFICE/OUTPATIENT ESTABLISHED LOW MDM 20 MIN [64852] Encounter Status:Closed by RENE GAYLE on 05/12/24 [facility] 03-09-2024 CN Office Visit ([facility] ) SRINIVASA PINEDA ([id number]) 1970 F Date Time Provider Department 03/09/24 2:45 PM BHARGAVI VOGT [facility] During your visit today, we recorded the following information about you: Temperature Pulse Respiration Blood pressure 97.4 degrees 72/minute 16/minute 127/79 Weight 77.4 kg Bhargavi Vogt APRN.COMMUNITY RELATIONS ADVISOR 03/09/2024 3:39 PM Signed Subjective Female with complaints of difficulty hearing in the right ear for about 2 weeks. Patient denies any pain in his ear. Patient says it feels muffled. Patient denies any other symptoms at this time. The history is provided by the patient. No cargo inspector was used. Review of Systems Constitutional: Negative. Skin: Negative. Objective Physical Exam Constitutional: Appearance: Normal appearance. HENT: Right Ear: There is impacted cerumen. Left Ear: Hearing, tympanic membrane, ear canal and external ear normal. Pulmonary: Effort: Pulmonary effort is normal. Neurological: Mental Status: She is alert. No past medical history on file. No past surgical history on file. ALLERGIES Patient has no known allergies. MEDICATIONS amLODIPine (NORVASC) 5 mg tablet Take 1 tablet by mouth every afternoon. ketoconazole (NIZORAL) 2 % cream APPLY TO BOTH FEET DAILY FOR 30 DAYS PARoxetine (PAXIL) 10 mg tablet Take 1 tablet by mouth every afternoon. metoprolol succinate ER (TOPROL XL) 25 mg 24 hr tablet Take 25 mg by mouth two times a day. aspirin, enteric coated (ASPIRIN, ENTERIC COATED) 81 mg EC tablet Take 81 mg by mouth once daily. terbinafine HCl (LAMISIL) 250 mg tablet Take 1 tablet by mouth every afternoon. (Patient not taking: Reported on 03/09/2024) No family history on file. Social History Tobacco Use Smoking status: Never Passive exposure: Never Smokeless tobacco: Never ASSESSMENT/PLAN: 1. Impacted cerumen of right ear - ICD9: 380.4, ICD10: H61.21 - REMOVAL OF IMPACTED CERUMEN - INSTRUMENTATION Closer exam it was a small foreign body in ear. Ear was attempted to be flushed unsuccessfully by ADRIAN. Was able to remove the foreign body with an alligator forcep. It appeared to be a black tire chip from a playground. Patient says she was playing in a playground like that a couple weeks ago. Tolerated procedure and the patient said hearing is still muffled due to the water from the flushing. Will follow-up with PCP if symptoms persist. Bhargavi Vogt APRN.COMMUNITY RELATIONS ADVISOR Allergies As of Date: 03/09/2024 (No Known Allergies) Date Reviewed: 03/09/2024 Reviewed by: Vivienne Oneil MA - Fully Assessed Reason for Visit: Right ear discomfort [Other] Cmt: Inability to hear, feels full X 2 weeks Primary Visit Diagnosis:Impacted cerumen of right ear [H61.21] Order(s): REMOVAL OF IMPACTED CERUMEN - INSTRUMENTATION [[id number]] Order #: [id number] Prescriptions as of 03/09/2024 - amLODIPine (NORVASC) 5 mg tablet Take 1 tablet by mouth every afternoon. - ketoconazole (NIZORAL) 2 % cream APPLY TO BOTH FEET DAILY FOR 30 DAYS - PARoxetine (PAXIL) 10 mg tablet Take 1 tablet by mouth every afternoon. - terbinafine HCl (LAMISIL) 250 mg tablet Take 1 tablet by mouth every afternoon. - metoprolol succinate ER (TOPROL XL) 25 mg 24 hr tablet Take 25 mg by mouth two times a day. - aspirin, enteric coated (ASPIRIN, ENTERIC COATED) 81 mg EC tablet Take 81 mg by mouth once daily. Problem List As Of Date: 03/09/2024 (None) Encounter Status:Closed by BHARGAVI VOGT on 03/09/24 Normal [facility] Absolute lymphocyte countOrd ered By: Richi Mcgowan on 03-06-2023 Lymphocytes Auto (Unsp spec) [#/Vol] 2.14 10*3/uL 0.83-4.51 [facility] Basophil percentageOrdered B y: Richi Mcgowan on 03-06-2023 Basophils/100 WBC (Bld) 0.9 % 0-1 [facility] Bilirubin [Mass/Vol] 0.30 mg/dL 0.20-1.00 [facility] Comment on above: For patients on eltr ombopag therapy, use of Dimension [place] TBIL is not recommended. Chloride [Moles/Vol] 109 mmol/L 98-107 [facility] Eosinophils/100 WBC (Bld) 0.7 % 0-5 [facility] Glucose [Mass/Vol] 104 mg/dL 74-106 [facility] Comment on above: Fasting Glucose resu lt from 100 to 125 mg/dL suggests IMPAIRED HOMEOSTASIS per A.D.A. criteria. Neutrophils (Bld) [#/Vol] 4.0 10*3/uL 2.0-7.7 [facility] Neutrophils/100 WBC (Bld) 58.1 % 47-70 [facility] Potassium [Moles/Vol] 4.0 mmol/L 3.5-5.1 [facility] Protein [Mass/Vol] 7.0 g/dL 6.4-8.2 [facility] Sodium [Moles/Vol] 145 mmol/L 136-145 [facility] WBC (Bld) [#/Vol] 7.0 10*3/uL 4.4-11.0 [facility] Blood erythrocytes count (nu mber/volume)Ordered By: Richi Mcgowan on 03-06-2023 RBC (Bld) [#/Vol] 4.61 10*6/uL 4.2-5.4 [facility] Blood hemoglobin measurement (mass/volume)Ordered By: Richi Mcgowan on 03-06-2023 Hemoglobin (Bld) [Mass/Vol] 13.8 g/dL 12.0-15.0 [facility] Blood lymphocytes/100 leukoc ytesOrdered By: Richi Mcgowan on 03-06-2023 Lymphocytes/100 WBC (Bld) 30.8 % 19-41 [facility] Blood monocytes/100 leukocyt esOrdered By: Richi Mcgowan on 03-06-2023 Monocytes/100 WBC (Bld) 9.4 % 0-10 [facility] Blood platelet mean volumeOr dered By: Richi Mcgowan on 03-06-2023 Platelet mean volume (Bld) [Entitic vol] 12.1 fL 6.2-12.0 [facility] Determination of erythrocyte mean corpuscular volume (MCV)Ordered By: Richi Mcgowan on 03-06-2023 MCV (RBC) [Entitic vol] 91.5 fL 81-99 [facility] Hematocrit Auto (Bld) [Volum e fraction]Ordered By: Richi Mcgowan on 03-06-2023 Hematocrit (Bld) [Volume fraction] 42.2 % 37-47 [facility] Laboratory - Chemistry and C hemistry - challengeOrdered By: Richi Mcgowan on 03-06-2023 ALP [Catalytic activity/Vol] 113 U/L 45-117 [facility] ALT [Catalytic activity/Vol] 14 U/L 13-56 [facility] CO2 [Moles/Vol] 28.0 mmol/L 21.0-32.0 [facility] Globulin (S) [Mass/Vol] 3.8 g/dL 2.2-4.2 [facility] Lipase [Catalytic activity/Vol] 29 U/L 13-75 [facility] Comment on above: Please note:LIPASE r evised reference range effective 22. New Lipase methodology. Expected to produce lower values than the previous assay method. NEW Reference Range: 13 - 75 U/L Urea nitrogen/Creatinine [Mass ratio] 20.5 mg/mg 10-20 [facility] Laboratory - Chemistry and C hemistry - challengeOrdered By: Joleen Peguero on 03-06-2023 CK [Catalytic activity/Vol] 75 U/L 26-192 [facility] Laboratory - Hematology and Cell countsOrdered By: Richi Mcgowan on 03-06-2023 Erythrocyte distribution width (RBC) [Entitic vol] 42.0 fL 35.1-43.9 [facility] Erythrocyte distribution width (RBC) [Ratio] 12.7 % 11.6-14.6 [facility] Immature granulocytes/100 WBC (Bld) 0.100 % 0.0-0.9 [facility] Comment on above: IG% - Immature Granu locytes (promyelocytes, myelocytes and metamyelocytes) > 1% indicates that a LEFT SHIFT is Present. MCH (RBC) [Entitic mass] 29.9 pg 27.0-32.0 [facility] Nucleated RBC/100 WBC (Bld) [Ratio] 0 % 0-5 [facility] MCHC Auto (RBC) [Mass/Vol]Or dered By: Richi Mcgowan on 03-06-2023 MCHC (RBC) [Mass/Vol] 32.7 g/dL 32-36 [facility] No Panel InformationOrdered By: Joleen Peguero on 03-06-2023 D-Dimer Quantitative (PE/DVT) < 0.27 FEU/ug/m 0.27-0.49 [facility] Comment on above: NORMAL D-Dimer level (<0.50) indicates no DVT or PE. No Panel InformationOrdered By: Richi Mcgowan on 03-06-2023 Estimated Creatinine Clearance Calc 76.96 ml/min [facility] Estimated GFR (MDRD) Amer 107 mL/min >60 [facility] Comment on above: GFR Calc Estimated GFR (MDRD) Non-Af Amer 88 mL/min >60 [facility] Comment on above: Non- GFR Calc Troponin I High Sensitivity 6 pg/mL 3.0-54.0 [facility] Comment on above: Please Note: New Ailyn t Units and Gender Specific Reference Ranges. For more information see Policy Stat Procedure [place] High Sensitivity Troponin (TNIH) and attachments. Platelets bldOrdered By: Brook Mcgowan on 03-06-2023 Platelets (Bld) [#/Vol] 221 10*3/uL 150-450 [facility] Serum or plasma albumin sofia urement (mass/volume)Ordered By: Richi Mcgowan on 03-06-2023 Albumin [Mass/Vol] 3.2 g/dL 3.2-5.0 [facility] Serum or plasma albumin/glob ulin mass ratioOrdered By: Richi Mcgowan on 03-06-2023 Albumin/Globulin [Mass ratio] 0.8 {ratio} 0.9-2.4 [facility] Serum or plasma calcium sofia urement (mass/volume)Ordered By: Richi Mcgowan on 03-06-2023 Calcium [Mass/Vol] 8.9 mg/dL 8.5-10.1 [facility] Serum or plasma creatinine m easurement (mass/volume)Ordered By: Richi Mcgowan on 03-06-2023 Creatinine [Mass/Vol] 0.73 mg/dL 0.55-1.02 [facility] Comment on above: The validity of the calculated GFR & GFRAA in patients over 70 years has not been determined. Clinical correlation is essential. Serum or plasma urea nitroge n measurement (mass/volume)Ordered By: Richi Mcgowan on 03-06-2023 Urea nitrogen [Mass/Vol] 15 mg/dL 7-18 [facility] Thin prep Papanicolaou smear with manual screeningOrdered By: Richi Mcgowan on 03-06-2023 Thin prep Papanicolaou smear with manual screening 13 U/L 15-37 [facility] Thin prep Papanicolaou smear with manual screening 8 5-15 [facility] Absolute lymphocyte countOrd ered By: Yvan Alex on 02-28-2023 Lymphocytes Auto (Unsp spec) [#/Vol] 1.98 10*3/uL 0.83-4.51 [facility] Basophil percentageOrdered B y: Yvan Alex on 02-28-2023 Basophils/100 WBC (Bld) 0.6 % 0-1 [facility] Chloride [Moles/Vol] 112 mmol/L 98-107 [facility] Eosinophils/100 WBC (Bld) 1.4 % 0-5 [facility] Glucose [Mass/Vol] 87 mg/dL 74-106 [facility] Neutrophils (Bld) [#/Vol] 4.3 10*3/uL 2.0-7.7 [facility] Neutrophils/100 WBC (Bld) 60.4 % 47-70 [facility] Potassium [Moles/Vol] 3.5 mmol/L 3.5-5.1 [facility] Sodium [Moles/Vol] 143 mmol/L 136-145 [facility] WBC (Bld) [#/Vol] 7.0 10*3/uL 4.4-11.0 [facility] Blood erythrocytes count (nu mber/volume)Ordered By: Yvan Alex on 02-28-2023 RBC (Bld) [#/Vol] 4.61 10*6/uL 4.2-5.4 [facility] Blood hemoglobin measurement (mass/volume)Ordered By: Yvan Alex on 02-28-2023 Hemoglobin (Bld) [Mass/Vol] 14.1 g/dL 12.0-15.0 [facility] Blood lymphocytes/100 leukoc ytesOrdered By: Yvan Alex on 02-28-2023 Lymphocytes/100 WBC (Bld) 28.1 % 19-41 [facility] Blood monocytes/100 leukocyt esOrdered By: Yvan Alex on 02-28-2023 Monocytes/100 WBC (Bld) 9.2 % 0-10 [facility] Blood platelet mean volumeOr dered By: Yvan Alex on 02-28-2023 Platelet mean volume (Bld) [Entitic vol] 12.1 fL 6.2-12.0 [facility] Determination of erythrocyte mean corpuscular volume (MCV)Ordered By: Yvan Alex on 02-28-2023 MCV (RBC) [Entitic vol] 91.3 fL 81-99 [facility] Hematocrit Auto (Bld) [Volum e fraction]Ordered By: Yvan Alex on 02-28-2023 Hematocrit (Bld) [Volume fraction] 42.1 % 37-47 [facility] Laboratory - Chemistry and C hemistry - challengeOrdered By: Yvan Alex on 02-28-2023 CO2 [Moles/Vol] 29.0 mmol/L 21.0-32.0 [facility] Urea nitrogen/Creatinine [Mass ratio] 18.0 mg/mg 10-20 [facility] Laboratory - Hematology and Cell countsOrdered By: Yvan Alex on 02-28-2023 Erythrocyte distribution width (RBC) [Entitic vol] 43.2 fL 35.1-43.9 [facility] Erythrocyte distribution width (RBC) [Ratio] 13.0 % 11.6-14.6 [facility] Immature granulocytes/100 WBC (Bld) 0.300 % 0.0-0.9 [facility] Comment on above: IG% - Immature Granu locytes (promyelocytes, myelocytes and metamyelocytes) > 1% indicates that a LEFT SHIFT is Present. MCH (RBC) [Entitic mass] 30.6 pg 27.0-32.0 [facility] Nucleated RBC/100 WBC (Bld) [Ratio] 0 % 0-5 [facility] MCHC Auto (RBC) [Mass/Vol]Or dered By: Yvan Alex on 02-28-2023 MCHC (RBC) [Mass/Vol] 33.5 g/dL 32-36 [facility] No Panel InformationOrdered By: Yvan Alex on 02-28-2023 Estimated Creatinine Clearance Calc 67.69 ml/min [facility] Estimated GFR (MDRD) Amer 92 mL/min >60 [facility] Comment on above: GFR Calc Estimated GFR (MDRD) Non-Af Amer 76 mL/min >60 [facility] Comment on above: Non- GFR Calc Platelets bldOrdered By: Julian Alex on 02-28-2023 Platelets (Bld) [#/Vol] 227 10*3/uL 150-450 [facility] Serum or plasma calcium sofia urement (mass/volume)Ordered By: Yvan Alex on 02-28-2023 Calcium [Mass/Vol] 9.0 mg/dL 8.5-10.1 [facility] Serum or plasma creatinine m easurement (mass/volume)Ordered By: Yvan Alex on 02-28-2023 Creatinine [Mass/Vol] 0.83 mg/dL 0.55-1.02 [facility] Comment on above: The validity of the calculated GFR & GFRAA in patients over 70 years has not been determined. Clinical correlation is essential. Serum or plasma urea nitroge n measurement (mass/volume)Ordered By: Yvan Alex on 02-28-2023 Urea nitrogen [Mass/Vol] 15 mg/dL 7-18 [facility] Thin prep Papanicolaou smear with manual screeningOrdered By: Yvan Alex on 02-28-2023 Thin prep Papanicolaou smear with manual screening 2 5-15 [facility] Absolute lymphocyte counton 02-08-2022 Lymphocytes Auto (Unsp spec) [#/Vol] 2.04 10*3/uL 0.83-4.51 [facility] Work Phone: [phone] Basophil percentageon 2021 Basophils/100 WBC (Bld) 0.6 % 0-1 [facility] Work Phone: Bilirubin [Mass/Vol] 0.40 mg/dL 0.20-1.00 [facility] Work Phone: Comment on above: For patients on eltr ombopag therapy, use of Dimension [place] TBIL is not recommended. Chloride [Moles/Vol] 109 mmol/L 98-107 [facility] Work Phone: Cholesterol [Mass/Vol] 199 mg/dL <200 [facility] Work Phone: Comment on above: <200 mg/dL Desirable 200-240 mg/dL Borderline >240 mg/dL High Risk Eosinophils/100 WBC (Bld) 2.0 % 0-5 [facility] Work Phone: Glucose [Mass/Vol] 96 mg/dL 74-106 [facility] Work Phone: Neutrophils (Bld) [#/Vol] 2.3 10*3/uL 2.0-7.7 [facility] Work Phone: Neutrophils/100 WBC (Bld) 45.4 % 47-70 [facility] Work Phone: Potassium [Moles/Vol] 3.7 mmol/L 3.5-5.1 [facility] Work Phone: [phone] Protein [Mass/Vol] 7.1 g/dL 6.4-8.2 [facility] Work Phone: [phone] Sodium [Moles/Vol] 145 mmol/L 136-145 [facility] Work Phone: Triglyceride [Mass/Vol] 61 mg/dL <199 [facility] Work Phone: Comment on above: The drugs N-Acetylcy steine and Metamizole may falsely depress this assay.Serum Triglycerides Reference Interval Normal <150 mg/dL Borderline high 150 - 199 mg/dL High 200 - 499 mg/dL Very High > or = 500 mg/dL WBC (Bld) [#/Vol] 5.0 10*3/uL 4.4-11.0 [facility] Work Phone: Blood erythrocytes count (nu mber/volume)on 02-08-2022 RBC (Bld) [#/Vol] 4.40 10*6/uL 4.2-5.4 [facility] Work Phone: Blood hemoglobin measurement (mass/volume)on 02-08-2022 Hemoglobin (Bld) [Mass/Vol] 13.6 g/dL 12.0-15.0 [facility] Work Phone: Blood lymphocytes/100 leukoc yteson 02-08-2022 Lymphocytes/100 WBC (Bld) 41.1 % 19-41 [facility] Work Phone: Blood monocytes/100 leukocyt eson 02-08-2022 Monocytes/100 WBC (Bld) 10.7 % 0-10 [facility] Work Phone: Blood platelet mean volumeon 02-08-2022 Platelet mean volume (Bld) [Entitic vol] 11.5 fL 6.2-12.0 [facility] Work Phone: Determination of erythrocyte mean corpuscular volume (MCV)on 02-08-2022 MCV (RBC) [Entitic vol] 93.0 fL 81-99 [facility] Work Phone: Hematocrit Auto (Bld) [Volum e fraction]on 02-08-2022 Hematocrit (Bld) [Volume fraction] 40.9 % 37-47 [facility] Work Phone: Laboratory - Chemistry and C hemistry - challengeon 02-08-2022 ALP [Catalytic activity/Vol] 99 U/L 45-117 [facility] Work Phone: ALT [Catalytic activity/Vol] 20 U/L 13-56 [facility] Work Phone: CO2 [Moles/Vol] 28.0 mmol/L 21.0-32.0 [facility] Work Phone: Globulin (S) [Mass/Vol] 3.8 g/dL 2.2-4.2 [facility] Work Phone: Urea nitrogen/Creatinine [Mass ratio] 23.5 mg/mg 10-20 [facility] Work Phone: Laboratory - Hematology and Cell countson 02-08-2022 Erythrocyte distribution width (RBC) [Entitic vol] 44.9 fL 35.1-43.9 [facility] Work Phone: Erythrocyte distribution width (RBC) [Ratio] 13.2 % 11.6-14.6 [facility] Work Phone: Immature granulocytes/100 WBC (Bld) 0.200 % 0.0-0.9 [facility] Work Phone: [phone] Comment on above: IG% - Immature Granu locytes (promyelocytes, myelocytes and metamyelocytes) > 1% indicates that a LEFT SHIFT is Present. MCH (RBC) [Entitic mass] 30.9 pg 27.0-32.0 [facility] Work Phone: Nucleated RBC/100 WBC (Bld) [Ratio] 0 % 0-5 [facility] Work Phone: MCHC Auto (RBC) [Mass/Vol]on 02-08-2022 MCHC (RBC) [Mass/Vol] 33.3 g/dL 32-36 [facility] Work [facility]: No Panel Informationon 02-08 Estimated GFR (MDRD) Amer 125 mL/min >60 [facility] Work Phone: Comment on above: GFR Calc Estimated GFR (MDRD) Non-Af Amer 104 mL/min >60 [facility] Work Phone: Comment on above: Non- GFR Calc Thyroid Stimulating Hormone (TSH) 1.10 uIU/mL 0.358-3.74 [facility] Work Phone: Platelets bldon 02-08-2022 Platelets (Bld) [#/Vol] 213 10*3/uL 150-450 [facility] Work Phone: Serum or plasma albumin sofia urement (mass/volume)on 02-08-2022 Albumin [Mass/Vol] 3.3 g/dL 3.2-5.0 [facility] Work Phone: Serum or plasma albumin/glob ulin mass ratioon 02-08-2022 Albumin/Globulin [Mass ratio] 0.9 {ratio} 0.9-2.4 [facility] Work Phone: Serum or plasma calcium sofia urement (mass/volume)on 02-08-2022 Calcium [Mass/Vol] 9.0 mg/dL 8.5-10.1 [facility] Work Phone: Serum or plasma cholesterol in HDL measurement (mass/volume)on 02-08-2022 Cholesterol in HDL [Mass/Vol] 81 mg/dL >40 [facility] Work Phone: Comment on above: The drugs N-Acetylcy steine and Metamizole may falsely depress this assay. Reference Range HDL <40 mg/dL Low HDL Cholesterol HDL >or= 60 mg/dL High HDL Cholesterol Serum or plasma cholesterol in VLDL measurement (mass/volume)on 02-08-2022 Cholesterol in VLDL [Mass/Vol] 12 mg/dL 5-40 [facility] Work Phone: Serum or plasma creatinine m easurement (mass/volume)on 02-08-2022 Creatinine [Mass/Vol] 0.64 mg/dL 0.55-1.02 [facility] Work Phone: Comment on above: The validity of the calculated GFR & GFRAA in patients over 70 years has not been determined. Clinical correlation is essential. Serum or plasma ferritin bakari surement (mass/volume)on 02-08-2022 Ferritin [Mass/Vol] 29 ng/mL 8-252 [facility] Work Phone: Serum or plasma low density lipoprotein (LDL) cholesterol measurement (mass/volume)on 02-08-2022 Cholesterol in LDL [Mass/Vol] 106 mg/dL 0-130 [facility] Work Phone: Serum or plasma urea nitroge n measurement (mass/volume)on 02-08-2022 Urea nitrogen [Mass/Vol] 15 mg/dL 7-18 [facility] Work Phone: Thin prep Papanicolaou smear with manual screeningon 02-08-2022 Thin prep Papanicolaou smear with manual screening 12 U/L 15-37 [facility] Work Phone: Thin prep Papanicolaou smear with manual screening 8 5-15 [facility] Work Phone: No Panel Informationon 09-02 Affirm Pathogens DNA Direct Probe Shagufta species DNA Probe Negative Gardnerella vaginalis DNA Probe Positive Trichomonas vaginalis DNA Probe Negative [facility] Surfacing Machine Operator Cytology Reporton 2021 Surfacing Machine Operator Cytology Report . Pathology Reports Accession: Collected Date/Time: Received Date/Time: Pathologist: [id number] 06/15/2021 15:28 EST 06/16/2021 18:00 EST RODGER NUNEZ MD Surfacing Machine Operator Cytology Report SPECIMEN: Specimen Description: Liquid Prep w/ HPV Specimen: Cervical/Endocervical Screening or Diagnostic: Screening RELEVANT HISTORY: LMP: 03/2021 [id number] SPECIMEN ADEQUACY: SATISFACTORY FOR EVALUATION ENDOCERVICAL/TRANSFORM ATIONAL ZONE COMPONENT ABSENT/INSUFFICIENT INTERPRETATION/RESULTS : NEGATIVE FOR INTRAEPITHELIAL LESION OR MALIGNANCY ORGANISMS: SHIFT IN [place] CONSISTENT WITH BACTERIAL VAGINOSIS. SUGGESTIONS/EDUCATIONA L NOTES: THIS CASE HAS BEEN REVIEWED FOR 10% Q.C. RESCREEN HIGH RISK HPV TESTING: High Risk HPV Typing: Negative HPV Types 16, 18, 31, 33, 35, 39, 45, 51, 52, 56, 58, 59, 66 and 68 DNA were undetectable or below the pre-set threshold. The noreen High-Risk HPV DNA Test is not intended for use as a screening device for Pap normal women under age 30 and is not intended to substitute for regular Pap screening. The noreen High-Risk HPV DNA Test is designed to augment existing methods for the detection of cervical disease and should be used in conjunction with clinical information derived from other diagnostic and screening tests, physical examinations and full medical history in accordance with appropriate patient management procedures. NOTE: A negative result does not preclude the presence of HPV infection because results depend on adequate specimen collection, absence of inhibitors and sufficient DNA to be detected. COMMENT: This Pap Test was successfully processed and evaluated with the assistance of the [employer] ThinPrep Test Imaging System. Electronically Signed by Pathology report verified by [facility] Screened by: SHANNON MONK Electronically signed by RODGER NUNEZ Sign-Out Date: 06/23/2021 14:24 Performing Lab: [facility], [address] [place] [address] Disclaimer The Pap test is a screening test for cervical cancer. As evidenced by published data, it is subject to both inherent false negative and false positive results. Your patient's results Pathology Reports Accession: Collected Date/Time: Received Date/Time: Pathologist: [id number] 06/15/2021 15:28 EST 06/16/2021 18:00 RODGER MORGAN MD Disclaimer should be interpreted in context with pertinent clinical history including gynecological examination. [facility] HPVon 06-18-2021 HPV Interp Normal See Interp HPVN [facility] Comment on above: Order Comment: Order placed by AP_HPV_ORDER rule from [id number] Result Comment: High Risk HPV Typing: NEGATIVE HPV types 16, 18, 31, 33, 35, 39, 45, 51, 52, 56, 58, 59, 66 and 68 DNA were undetectable or below the pre-set threshold. The noreen High-Risk HPV DNA Test is not intended for use as a screening device for Pap normal women under age 30 and is not intended to substitute for regular Pap screening. The noreen High-Risk HPV DNA Test is designed to augment existing methods for the detection of cervical disease and should be used in conjunction with clinical information derived from other diagnostic and screening tests, physical examinations and full medical history in accordance with appropriate patient management procedures. NOTE: A negative result does not preclude the presence of HPV infection because results depend on adequate specimen collection, absence of inhibitors and sufficient DNA to be detected. See Inter HPVN Performed By: #### H PV #### [address] [address] HPV Source Cervix [facility] Comment on above: Order Comment: Order placed by AP_HPV_ORDER rule from [id number] Performed By: #### H PV #### [address] [address] FT3on 06-15-2021 Free T3 [Mass/Vol] 3.22 pg/mL Normal 2.30-4.00 [facility] Comment on above: Performed By: #### T SH, FT4, FT3 #### [address] [address] FT4on 06-15-2021 Free T4 [Mass/Vol] 1.06 ng/dL Normal 0.76-1.46 [facility] Comment on above: Performed By: #### T SH, FT4, FT3 #### [address] [address] LABORATORYOrdered By: Blayne Kingsley on 06-15-2021 HPV [facility] High Risk HPV Typing : NEGATIVEHPV types 16, 18, 31, 33, 35, 39, 45, 51, 52, 56, 58, 59, 66 and 68 DNA wereundetectable or below the pre-set threshold.The noreen High-Risk HPV DNA Test is not intended for use as a screening device forPap normal women under age 30 and is not intended to substitute for regular Papscreening.The noreen High-Risk HPV DNA Test is designed to augment existing methods for thedetection of cervical disease and should be used in conjunction with clinicalinformation derived from other diagnostic and screening tests, physical examinationsand full medical history in accordance with appropriate patient managementprocedures.N OTE: A negative result does not preclude the presence of HPV infection because resultsdepend on adequate specimen collection, absence of inhibitors and sufficientDNA to be detected. Invalid Interpretation Code See Inter HPVN Auto Viro/Sero SS Specimen source Nom (Unsp spec) Cervix (06/15/21 3:28 PM) Invalid Interpretation Code Auto Viro/Sero SS No Panel Informationon 06-15 Affirm Pathogens DNA Direct Probe Gardnerella vaginalis DNA Probe Positive Trichomonas vaginalis DNA Probe Negative Shagufta species DNA Probe Negative [facility] TSHon 06-15-2021 TSH Qn 1.68 m[IU]/L Normal 0.36-3.74 [facility] Comment on above: Performed By: #### T SH, FT4, FT3 #### [facility] [address] [place], [place] [address] MG Mammogram Digital Diagnos tic Lefton 11-08-2018 MG Mammogram Digital Diagnostic Left Patient Name: SRINIVASA PINEDA Mammography Exam Date/Time 11/08/2018 11:43:40 EDT Exam MG Mammogram Digital Diagnostic Left Ordering Physician JOHN BRAVO Accession Number [id number] CPT4 Codes 93299 () Reason For Exam left breast mass Report PATIENT HISTORY: Family history of colorectal cancer at age 52 in mother, colorectal cancer in maternal uncle, breast cancer in maternal aunt, unknown cancer and breast cancer at age 64 in maternal aunt. Took hormonal contraceptives for 2 years. Patient has never smoked. Patient's BMI is 29.2. TIME SINCE LAST MAMMOGRAM: Last mammogram was performed 3 months ago. REASON FOR EXAM: addl eval requested from prior study. PROCEDURE: US BX BREAST 1ST LESION IMAGE LT: LEFT BREAST - NOVEMBER 08, 2018 - Technologist: Emily Brown RDMS REASON FOR EXAMINATION: Mass for which biopsy was recommended CONSENT: The patient presents for ultrasound-guided core biopsy of the left breast. Prior to the procedure red rules were performed which included patient name, date of , and procedure type. Risks, benefits and alternatives were explained to the patient and informed consent was obtained. The patient?s prior imaging dated 10/25/2018 was reviewed. PROCEDURE: An audible time out was performed. I washed my hands and wore sterile gloves. The patient was scanned and the lesion in the 1:00 position of the left breast was redemonstrated. The patient was prepped in the usual sterile fashion. 10 mL of 1% Lidocaine was administered for local anesthesia. A 13-gauge introducer was placed into the left breast and a 14- gauge BARD core biopsy device was advanced into the lesion with ultrasound guidance. 3 core specimens were obtained. Following the procedure a [employer]ur[employer] top hat tissue marker was deployed at the site of biopsy. Hemostasis was obtained by holding manual pressure. The patient tolerated the procedure without immediate complications. Home-going instructions were given and the patient was discharged in good condition. IMPRESSION: Technically successful US guided biopsy of the left breast. MAMMOGRAM: Following the procedure the patient was transported to the mammography suite and a 2D digital mammogram was performed demonstrating satisfactory placement of the tissue marker at the site of biopsy. Markings on images: BB's = Nipples; skin lesions Open douglas = Palpable Line = Scar Report Dictated on PATHOLOGY RESULTS: BENIGN MG MAMMOGRAM DIGITAL DIAGNOSTIC LEFT: NOVEMBER 08, 2018 - CC and ML view(s) were taken of the left breast. 2D digital mammography imaging was performed and reviewed with CAD. ASSESSMENT: Post procedure mammogram for marker placement RECOMMENDATION: Ultrasound of the left breast in 6 months. Final Signed Date and Time: 11/17/2018 4:29 pm Signed by: MD HONEYCUTT TOM A [facility] Surgical Pathologyon 019 Surgical Pathology [id number] [facility] PATHOLOGY AND LABORATORY MEDICINE [address] [place] [address] [phone] Fax - FINAL SURGICAL PATHOLOGY REPORT NAME: SRINIVASA PINEDA : 1970 48 Y F BILLING NO.: [id number] LOCATION: [facility] PROCEDURE 11/08/2018 DATE: SURGEON: JOHN BRAVO M.D. RECEIVED 11/08/2018 DATE: ATTENDING: JOHN BRAVO M.D. REPORT DATE: 11/09/2018 COPIES TO: TIANA HONEYCUTT MD DIAGNOSIS: BREAST, LEFT, BIOPSY - BREAST PARENCHYMA WITH DENSE STROMAL FIBROSIS. SMT/SMT Signature> S MCKAY PICKETT M.D. CLINICAL INFORMATION: Left breast mass SPECIMEN: BREAST NEEDLE CORE BIOPSY GROSS DESCRIPTION: Left breast tissue Received obtained at 11:17 and placed into formalin at 11:18 are three, core-like segments of yellow-michelle, floating tissue measuring 0.6 to 1.2 cm in length. Specimen is entirely submitted in a single cassette. (3 ns, 1) JCK/JAF Disclaimer: The following statement applies to all immunohistochemistry, in situ hybridization, molecular studies, and immunofluorescence testing. The use of one or more reagents in the above tests is regulated as an analyte specific reagent (ASR). These tests were developed and their performance characteristics determined by the clinical laboratories of [facility]. They have not been cleared by the US Food and Drug Administration (FDA). The FDA has determined that such clearance or approval is not necessary. All the above immunostains were performed on paraffin embedded tissue. Appropriate positive and negative controls (where applicable) were run in parallel with the patient's specimen; these controls showed expected staining pattern, with acceptable intensity of staining. Immunohistochemical assays have not been validated on decalcified tissues. Results should be interpreted with caution given the raised possibility of false negativity on decalcified specimens. Case reviewed at [address] [id number]. DEPARTMENT OF PATHOLOGY AND LABORATORY MEDICINE [place], [place] [address] [facility] US BX Breast 1st Lesion Imag e LTon 11-08-2018 US BX Breast 1st Lesion Image LT Patient Name: SRINIVASA PINEDA Ultrasound Exam Date/Time 11/08/2018 11:37:28 EDT Exam US BX Breast 1st Lesion Image LT Ordering Physician JOHN BRAVO Accession Number [id number] CPT4 Codes 34163 (), A4648 () Reason For Exam lt breast mass Report PATIENT HISTORY: Family history of colorectal cancer at age 52 in mother, colorectal cancer in maternal uncle, breast cancer in maternal aunt, unknown cancer and breast cancer at age 64 in maternal aunt. Took hormonal contraceptives for 2 years. Patient has never smoked. Patient's BMI is 29.2. TIME SINCE LAST MAMMOGRAM: Last mammogram was performed 3 months ago. REASON FOR EXAM: addl eval requested from prior study. PROCEDURE: US BX BREAST 1ST LESION IMAGE LT: LEFT BREAST - NOVEMBER 08, 2018 - Technologist: Emily Brown RDMS REASON FOR EXAMINATION: Mass for which biopsy was recommended CONSENT: The patient presents for ultrasound-guided core biopsy of the left breast. Prior to the procedure red rules were performed which included patient name, date of , and procedure type. Risks, benefits and alternatives were explained to the patient and informed consent was obtained. The patient?s prior imaging dated 10/25/2018 was reviewed. PROCEDURE: An audible time out was performed. I washed my hands and wore sterile gloves. The patient was scanned and the lesion in the 1:00 position of the left breast was redemonstrated. The patient was prepped in the usual sterile fashion. 10 mL of 1% Lidocaine was administered for local anesthesia. A 13-gauge introducer was placed into the left breast and a 14- gauge BARD core biopsy device was advanced into the lesion with ultrasound guidance. 3 core specimens were obtained. Following the procedure a Securmark top hat tissue marker was deployed at the site of biopsy. Hemostasis was obtained by holding manual pressure. The patient tolerated the procedure without immediate complications. Home-going instructions were given and the patient was discharged in good condition. IMPRESSION: Technically successful US guided biopsy of the left breast. MAMMOGRAM: Following the procedure the patient was transported to the mammography suite and a 2D digital mammogram was performed demonstrating satisfactory placement of the tissue marker at the site of biopsy. Markings on images: BB's = Nipples; skin lesions Open douglas = Palpable Line = Scar Report Dictated on PATHOLOGY RESULTS: BENIGN MG MAMMOGRAM DIGITAL DIAGNOSTIC LEFT: NOVEMBER 08, 2018 - CC and ML view(s) were taken of the left breast. 2D digital mammography imaging was performed and reviewed with CAD. ASSESSMENT: Post procedure mammogram for marker placement RECOMMENDATION: Ultrasound of the left breast in 6 months. Final Signed Date and Time: 11/17/2018 4:29 pm Signed by: MD YINKA, [facility] US Breast Limited Lefton US Breast Limited Left Patient Name: SRINIVASA PINEDA Ultrasound Exam Date/Time 10/25/2018 09:45:44 EDT Exam US Breast Limited Left Ordering Physician MD SHERON, RHETT CONDE Accession Number [id number] CPT4 Codes 24599 () Reason For Exam abnormal Mammogram Report PATIENT HISTORY: Family history of colorectal cancer at age 52 in mother, colorectal cancer in maternal uncle, breast cancer in maternal aunt, unknown cancer and breast cancer at age 64 in maternal aunt. Took hormonal contraceptives for 2 years. Patient has never smoked. Patient's BMI is 29.2. REASON FOR EXAM: mammographic abnormality. PROCEDURE: US BREAST LIMITED LEFT: OCTOBER 25, 2018 - Technologist: Emily Brown RDMS Prior study comparison: August 03, 2018, bilateral MG breast tomosynthesis bl scr performed at [facility]. October 25, 2012, bilateral screening mammogram performed at [facility]. . FINDINGS: The patient was recalled from screening mammogram to evaluate a left breast mass. Correlating with the mammographic mass at 1:00, 5 cm from the nipple, is a 2.6 x 1.3 x 2.1 cm oval hypoechoic mass with partially indistinct margins and vascularity. This is suspicious and biopsy is recommended. Other axillary surveillance reveals no abnormal-appearing lymph nodes. Incidentally seen at 1:00, 4 cm from the nipple, is a benign cluster of microcysts measuring 1.2 x 0.7 x 1.2 cm. IMPRESSION: Suspicious left breast mass at 1:00. Ultrasound-guided biopsy is recommended. ASSESSMENT: Category 4 Suspicious RECOMMENDATION: Surgical consultation and ultrasound guided core biopsy of the left breast. I discussed the results and recommendations with the patient at the conclusion of the exam. Nurse Navigator Elen left a voice message for An in the office of the referring clinician today at 1035 hours. The patient is scheduled for surgical consultation with Dr. John Bravo on 11/08/2018 followed by same-day biopsy. . Report Dictated on Final Signed Date and Time: 10/25/2018 11:19 am Signed by: MD JAVIER KERISTEN L [facility] Breast Tomosynthesis Scr Blon 08-03-2018 MG Breast Tomosynthesis Scr Bl Patient Name: SRINIVASA PINEDA Mammography Exam Date/Time 08/03/2018 17:09:10 EDT Exam MG Breast Tomosynthesis BI Scr Ordering Physician MD [facility] Accession Number [id number] CPT4 Codes 17692 (MG Breast Tomosynthesis Scr Bl), 51219 (MG MAMMO 2D SCREENING) Reason For Exam screening Report PATIENT HISTORY: Took hormonal contraceptives for 2 years. Patient has never smoked. Patient's BMI is 29.2. REASON FOR EXAM: screening, asymptomatic. PROCEDURE: MG BREAST TOMOSYNTHESIS BL SCR: AUGUST 03, 2018 - 2D/3D Procedure 3D Bilateral CC and MLO view(s) were taken. 2D Bilateral CC and MLO view(s) were taken. Findings seen on 2D and 3D images on slice(s) 31/ of cc and 32/76 of mlo on the left side. TISSUE DENSITY: The breast tissue is heterogeneously dense, which could obscure underlying abnormalities. . FINDINGS: There is a new focal asymmetry in the superior lateral aspect of the left breast as shown on image 31 of 67 of the cc tomograms and 32 of 76 of the MLO tomograms. Correlation with ultrasound advised. Additional mammographic views may be needed. There is no evidence of skin thickening or nipple retraction. Markings on images: BB's = Nipples; skin lesions Open douglas = Palpable Line = Scar 2D digital mammography and tomosynthesis imaging were performed and reviewed with CAD. ASSESSMENT: Category 0 Incomplete: need additional imaging evaluation RECOMMENDATION: Ultrasound and special view mammogram of the left breast. . Report Dictated on Cancer Risk Assessment: This risk assessment is based on patient provided information collected in a risk survey taken at the time of this examination. Lifetime breast cancer risk: 24.5% - If greater than or equal to 20%, consider annual mammogram and annual screening Breast MRI or follow up in high risk clinic. Is the patient at elevated risk based on the HBOC criteria? No (Hereditary Breast and Ovarian Cancer) - If yes, consider genetic counseling and testing with high risk follow up. HNPCC mutation risk (Simons Syndrome): 34.2% - if greater than or equal to 5%, consider genetic counseling, testing and screening colonoscopy. . Report Dictated on Cancer Risk Assessment: This risk assessment is based on patient provided information collected in a risk survey taken at the time of this examination. Lifetime breast cancer risk: 24.5% - If greater than or equal to 20%, consider annual mammogram and annual screening Breast MRI or follow up in high risk clinic. Is the patient at elevated risk based on the HBOC criteria? No (Hereditary Breast and Ovarian Cancer) - If yes, consider genetic counseling and testing with high risk follow up. HNPCC mutation risk (Simons Syndrome): 34.2% - if greater than or equal to 5%, consider genetic counseling, testing and screening colonoscopy. Final Signed Date and Time: 08/15/2018 9:07 am Signed by: MD HANSEN LAURA [facility] Office Visit: [facility] 12-29-19 Documentation of current medications (procedure) Done Invalid Interpretation Code [employer] Phone: [phone] Office Visiton 05-17-2016 Dietary management education, guidance, and counseling (procedure) yes Invalid Interpretation Code [employer] Phone: [phone] Replaced Document: Barb Banerjee CG Observationson 05-17-2016 electrocardiogram interpretation Sinus Rhythm WITHIN NORMAL LIMITS Invalid Interpretation Code [employer] Phone: [phone] GE use only - for LinkLogic import when terms are not otherwise specified 403 ms Invalid Interpretation Code [employer] Work Phone: [phone] P wave axis, electrocardiogram -1 deg Invalid Interpretation Code [employer] Phone: [phone] MA interval, electrocardiogram 140 ms Invalid Interpretation Code [employer] Phone: [phone] Pulse (Heart Rate) 71 /min Invalid Interpretation Code [employer] Phone: [phone] QRS axis, electrocardiogram 2 deg Invalid Interpretation Code [employer] Phone: [phone] QRS duration, electrocardiogram 90 ms Invalid Interpretation Code [employer] Phone: [phone] QT interval, electrocardiogram new path ms Invalid Interpretation Code [employer] Phone: [phone] T wave axis, electrocardiogram -1 deg Invalid Interpretation Code [employer] Phone: [phone] Clinical Lists Update: Prelo umbrella cutter 05-14-2016 Left ventricular Ejection fraction 65 % Invalid Interpretation Code [employer] Phone: [phone] Office Visit: [facility] 12-12-19 15 General cardiovascular disease 10Y risk [#] [place].D'Agostino 2 % Invalid Interpretation Code [employer] Phone: [phone] Tobacco use CPHS Never smoker Invalid Interpretation Code [employer] Phone: [phone] Lab Report: Basic Metabolic Profile (BMP)on 11-05-2014 Anion gap 8 mmol/L Invalid Interpretation Code 5-15 [employer] Phone: [phone] BUN/Creatinine Ratio 18.6 RATIO Invalid Interpretation Code 10-20 [employer] Phone: [phone] Calcium 8.8 mg/dL Invalid Interpretation Code 8.5-10.1 [employer] Work Phone: [phone] Chloride 109 mmol/L High 98-107 [employer] Work Phone: [phone] CO2 24.0 mmol/L Invalid Interpretation Code 21.0-32.0 [employer] Work Phone: [phone] Creatinine 0.7 mg/dL Invalid Interpretation Code 0.6-1.0 [employer] Work Phone: [phone] eGFR (non-black) 116 mL/min/{1.73_m2} Invalid Interpretation Code >60 [employer] Work Phone: [phone] eGFR (non-black) 96 mL/min/{1.73_m2} Invalid Interpretation Code >60 [employer] Work Phone: [phone] Glucose 88 mg/dL Invalid Interpretation Code 70-110 [employer] Work Phone: [phone] Potassium 3.8 mmol/L Invalid Interpretation Code 3.5-5.1 [employer] Work Phone: [phone] Sodium 141 mmol/L Invalid Interpretation Code 136-145 [employer] Work Phone: [phone] Urea nitrogen 13 mg/dL Invalid Interpretation Code 7-18 [employer] Work Phone: [phone] Lab Report: CBC W/Diff, Auto matedon 11-05-2014 Absolute Neutrophil count 2.9 X10 3/UL Invalid Interpretation Code 2.0-7.7 [employer] Phone: [phone] Basophils/100 leukocytes 0.4 % Invalid Interpretation Code 0-1 [employer] Work Phone: [phone] Eosinophils/100 leukocytes 1.3 % Invalid Interpretation Code 0-5 [employer] Work Phone: [phone] Erythrocytes (RBC) 4.47 10*6/uL Invalid Interpretation Code 4.2-5.4 [employer] Work Phone: [phone] Hematocrit (HCT) 41.2 % Invalid Interpretation Code 37-47 [employer] Work Phone: [phone] Hemoglobin (HGB) 13.8 g/dL Invalid Interpretation Code 12.0-15.0 [employer] Work Phone: [phone] immature granulocytes, percentage of total cells, blood 0.200 % Invalid Interpretation Code 0.0-0.9 [employer] Work Phone: [phone] Lymphocytes 1.54 X10 3/UL Invalid Interpretation Code 0.83-4.51 [employer] Work Phone: [phone] Lymphocytes/100 leukocytes 29.3 % Invalid Interpretation Code 19-41 [employer] Work Phone: [phone] MCH 30.9 pg Invalid Interpretation Code 27.0-32.0 [employer] Work Phone: [phone] MCHC 33.5 G/GL Invalid Interpretation Code 32-36 [employer] Work Phone: [phone] MCV 92.2 fL Invalid Interpretation Code 81-99 [employer] Work Phone: [phone] Monocytes/100 leukocytes 13.0 % High 0-10 [employer] Work Phone: [phone] Neutrophils/100 leukocytes 55.8 % Invalid Interpretation Code 47-70 [employer] Work Phone: [phone] Platelets 205 10*3/mm3 Invalid Interpretation Code 150-450 [employer] Work Phone: [phone] PMV by Rito-Adolph 12.1 fL High 6.2-12.0 [employer] Work Phone: [phone] RDW-CA 13.0 % Invalid Interpretation Code 11.6-14.6 [employer] Phone: [phone] red blood cell distribution width, size density 43.5 fL Invalid Interpretation Code 35.1-43.9 [employer] Work Phone: [phone] WBC (Leukocytes) 5.3 10*3/uL Invalid Interpretation Code 4.4-11.0 [employer] Work Phone: [phone] Lab Report: Lipid Profileon 11-05-2014 Cholesterol 198 mg/dL Invalid Interpretation Code 200 [employer] Work Phone: [phone] HDL Cholesterol 65 mg/dL Invalid Interpretation Code [employer] Work Phone: [phone] LDL Cholesterol 122 mg/dL Invalid Interpretation Code 0-130 [employer] Work Phone: [phone] Triglyceride 55 mg/dL Invalid Interpretation Code 0-199 [employer] Work Phone: [phone] very low density lipoproteins 11 mg/dL Invalid Interpretation Code 5-40 [employer] Work Phone: [phone] Lab Report: Liver Profileon 11-05-2014 Alanine aminotransferase (ALT) 19 U/L Invalid Interpretation Code 12-78 [employer] Work Phone: [phone] Albumin 3.4 g/dL Invalid Interpretation Code 3.4-5.0 [employer] Work Phone: [phone] Alkaline phosphatase (ALP) 75 U/L Invalid Interpretation Code 50-136 [employer] Work Phone: [phone] Aspartate aminotransferase (AST) 13 U/L Low 15-37 [employer] Work Phone: [phone] Bilirubin (direct) 0.13 mg/dL Invalid Interpretation Code 0.00-0.30 [employer] Work Phone: [phone] Bilirubin (total) 0.40 mg/dL Invalid Interpretation Code 0.20-1.00 [employer] Work Phone: [phone] Globulin 3.7 g/dL Invalid Interpretation Code 2.7-4.2 [employer] Work Phone: [phone] Protein 7.1 g/dL Invalid Interpretation Code 6.4-8.2 [employer] Work Phone: [phone] Lab Report: T4 Total, Thyrox inon 11-05-2014 Thyroxine (T4) 10.6 ug/dL Invalid Interpretation Code 4.8-13.9 [employer] Work Phone: [phone] Lab Report: Thyroid Stim Hor diogenes (TSH)on 11-05-2014 Thyroid stimulating hormone (TSH) 1.06 u[iU]/mL Invalid Interpretation Code 0.358-3.74 [employer] Work Phone: [phone] Office Visiton 10-31-2014 cardiac risk group A Invalid Interpretation Code [employer] Work Phone: [phone] Vital Signs Date Time Vital Sign Value Performing Clinician Facility 02-08-2025 14:27-0400 Body temperature 98.3 [degF] Bettina VALENTEC Work Phone: [facility] 02-08-2025 14:27-0400 Diastolic blood pressure 68 mm[Hg] Bettina Cristo MD UROLOGIST-C Work Phone: [facility] 02-08-2025 14:27-0400 Heart rate 76 /min Bettina Cristo MD UROLOGIST-C Work Phone: [facility] 02-08-2025 14:27-0400 Respiratory rate 15 /min Bettina Cristo MD UROLOGIST-C Work Phone: [facility] 02-08-2025 14:27-0400 SaO2% (BldA) [Mass fraction] 96 % Bettina Cristo MD UROLOGIST-C Work Phone: [facility] 02-08-2025 14:27-0400 Systolic blood pressure 108 mm[Hg] Bettina Cristo MD UROLOGIST-C Work Phone: [facility] 01-21-2025 15:51-0400 Body height 162.56 cm Bettina Cristo MD UROLOGIST-C Work Phone: [facility] 01-21-2025 15:51-0400 Body mass index (BMI) [Ratio] 28.6 kg/m2 Bettina Cristo MD UROLOGIST-C Work Phone: [facility] 01-21-2025 15:51-0400 Body temperature 98.6 [degF] Bettina Cristo MD UROLOGIST-C Work Phone: [facility] 01-21-2025 15:51-0400 Body weight 75.74 kg Bettina Cristo MD UROLOGIST-C Work Phone: [facility] 01-21-2025 15:51-0400 Diastolic blood pressure 82 mm[Hg] Bettina Cristo MD UROLOGIST-C Work Phone: [facility] 01-21-2025 15:51-0400 Heart rate 75 /min Bettina Cristo MD UROLOGIST-C Work Phone: [facility] 01-21-2025 15:51-0400 SaO2% (BldA) [Mass fraction] 98 % Bettina Lemons MD UROLOGIST-C Work Phone: [facility] 01-21-2025 15:51-0400 Systolic blood pressure 130 mm[Hg] Bettina Lemons MD UROLOGIST-C Work Phone: [facility] 05-12-2024 14:47-0500 Body temperature 97.9 [degF] Rene Gayle MD Work Phone: [facility] 05-12-2024 14:47-0500 Body weight 76.2 kg Rene Gayle MD Work Phone: [facility] 05-12-2024 14:47-0500 Diastolic blood pressure 79 mm[Hg] Rene Gayle MD Work Phone: [facility] 05-12-2024 14:47-0500 Heart rate 81 /min Rene Gayle MD Work Phone: [facility] 05-12-2024 14:47-0500 Respiratory rate 18 /min Rene Gayle MD Work Phone: [facility] 05-12-2024 14:47-0500 SaO2% (BldA) [Mass fraction] 100 % Rene Gayle MD Work Phone: [facility] 05-12-2024 14:47-0500 Systolic blood pressure 123 mm[Hg] Rene Gayle MD Work Phone: [facility] 03-09-2024 14:44-0500 Body temperature 97.39 [degF] Bhargavi Vogt APRN.COMMUNITY RELATIONS ADVISOR Work Phone: [facility] 03-09-2024 14:44-0500 Body weight 77.4 kg Bhargavi Vogt APRN.COMMUNITY RELATIONS ADVISOR Work Phone: [facility] 03-09-2024 14:44-0500 Diastolic blood pressure 79 mm[Hg] Bhargavi Vogt APRN.COMMUNITY RELATIONS ADVISOR Work Phone: [facility] 03-09-2024 14:44-0500 Heart rate 72 /min Bhargavi Vogt APRN.COMMUNITY RELATIONS ADVISOR Work Phone: [facility] 03-09-2024 14:44-0500 Respiratory rate 16 /min Bhargavi Vogt APRN.COMMUNITY RELATIONS ADVISOR Work Phone: [facility] 03-09-2024 14:44-0500 SaO2% (BldA) [Mass fraction] 97 % Bhargavi Vogt APRN.COMMUNITY RELATIONS ADVISOR Work Phone: [facility] 03-09-2024 14:44-0500 Systolic blood pressure 127 mm[Hg] Bhargavi Vogt APRN.COMMUNITY RELATIONS ADVISOR Work Phone: [facility] 03-06-2023 13:18-0500 Diastolic blood pressure 99 mm[Hg] [facility] 03-06-2023 13:18-0500 Heart rate 69 /min [facility] 03-06-2023 13:18-0500 Respiratory rate 17 /min [facility] 03-06-2023 13:18-0500 SaO2% (BldA) [Mass fraction] 100 % [facility] 03-06-2023 13:18-0500 Systolic blood pressure 182 mm[Hg] [facility] 03-06-2023 11:45-0500 Body height 162.56 cm [facility] 03-06-2023 11:45-0500 Body mass index (BMI) [Ratio] 29.6 kg/m2 [facility] 03-06-2023 11:45-0500 Body temperature 96.8 [degF] [facility] 03-06-2023 11:45-0500 Body weight 78.38 kg [facility] 02-28-2023 16:17-0400 Diastolic blood pressure 97 mm[Hg] [facility] [facility]23 16:17-0400 Heart rate 89 /min [facility] 02-28-2023 16:17-0400 Respiratory rate 16 /min [facility] 02-28-2023 16:17-0400 SaO2% (BldA) [Mass fraction] 99 % [facility] 02-28-2023 16:17-0400 Systolic blood pressure 156 mm[Hg] [facility] 02-28-2023 14:38-0400 Body height 162.56 cm [facility] 02-28-2023 14:38-0400 Body mass index (BMI) [Ratio] 30.8 kg/m2 [facility] 02-28-2023 14:38-0400 Body temperature 97.2 [degF] [facility] 02-28-2023 14:38-0400 Body weight 81.43 kg [facility] 12-28-2016 15:05-0400 BMI (Body Mass Index) 29.86 kg/m2 [facility] Work Phone: 12-28-2016 15:05-0400 BP Diastolic 80 mm[Hg] [facility] Work Phone: 12-28-2016 15:05-0400 BP Systolic 120 mm[Hg] [facility] Work Phone: 12-28-2016 15:05-0400 Pulse (Heart Rate) 76 /min [facility] Work Phone: 12-28-2016 15:05-0400 Weight 78.93 kg [facility] Work Phone: 05-17-2016 09:01-0500 BSA (Body Surface Area) 1.86 m2 [facility] Work Phone: 05-17-2016 09:01-0500 Respiratory Rate 16 /min [facility] Work Phone: 10-31-2014 14:32-0400 Height 162.56 cm [facility] Work Phone: Encounters Encounter Date Encounter Type Care Provider Facility Start: 02-08-2025 End: 02-08-2025 Patient encounter procedure Freddie [facility]TENCOURT [facility] Work Phone: Start: 02-08-2025 End: 02-08-2025 ambulatory Freddie BETTENCOURT Facility:[facility] Start: 01-21-2025 End: 01-21-2025 Patient encounter procedure Kaushik BETTENCOURT [facility] Work Phone: Start: 01-21-2025 End: 01-21-2025 ambulatory Bettina Lemons MD UROLOGIST-C Work Phone: -[facility] Start: 10-30-2024 Non-patient / Non-visit Dr. Johanny odom MD -[facility] Work Phone: Start: 05-12-2024 End: 05-12-2024 ambulatory [facility] Facility:[facility] Start: 05-12-2024 End: 05-12-2024 Office outpatient visit 15 minutes Rene Gayle MD Work Phone: [facility] Comment on above: Otalgia, right (Prim jillian Dx) Start: 03-09-2024 End: 03-09-2024 ambulatory [facility] Facility:[facility] Start: 03-09-2024 End: 03-09-2024 Patient encounter procedure Bhargavi Vogt APRN.COMMUNITY RELATIONS ADVISOR Work Phone: [facility] Comment on above: Impacted cerumen of right ear (Primary Dx) Start: 03-15-2023 Non-patient / Non-visit MD UROLOGIST-C Kathy Lemons Work Phone: [facility] Start: 03-15-2023 End: 03-15-2023 ambulatory MD UROLOGIST-C Bettina Lemons Work Phone: [facility] Work Phone: Start: 03-15-2023 End: 03-15-2023 Patient encounter procedure MD UROLOGIST-C Bettina Lemons [facility]: Start: 03-08-2023 Registered Referred MD UROLOGIST-C Juan Carlos Lemons [facility] Work [facility]: Start: 03-06-2023 End: 03-06-2023 Emergency department patient visit [facility] Work Phone: Start: 02-28-2023 End: 02-28-2023 Emergency department patient visit [facility] Work Phone: Start: 02-08-2022 End: 02-08-2022 ambulatory [facility] Work Phone: Start: 02-08-2022 End: 02-08-2022 Patient encounter procedure [facility]Laboratory Start: 12-21-2021 End: 12-21-2021 ambulatory [facility] Work Phone: Start: 12-21-2021 End: 12-21-2021 Patient encounter procedure [facility]Outpatient Breast Imaging Start: 09-02-2021 End: 09-06-2021 Outreach Lab RAFFI CORNELL RESOURCE PROTECTION SPECIALIST-COMMUNITY RELATIONS ADVISOR [facility] Start: 06-15-2021 End: 06-19-2021 Outreach Lab RAFFI BARRIOSON RESOURCE PROTECTION SPECIALIST-COMMUNITY RELATIONS ADVISOR [facility] Procedures Date Procedure Procedure Detail Performing Clinician Start: 03-15-2023 Radionuclide imaging of perfusion of myocardium under exercise stress KAYLA Lemons Work Phone: Start: 03-06-2023 Plain chest X-ray Start: 12-21-2021 Screening mammography Start: 12-28-2016 End: 12-28-2016 Follow Up Appt 1 year Stephy de paz PA-C Work Phone: Start: 12-28-2016 End: 12-28-2016 PFM Stephy Reyes PA-C Work Phone: Start: 05-17-2016 End: 05-17-2016 Electrocardiogram, complete Richi bethea MD Start: 05-17-2016 End: 05-17-2016 Follow Up Appt 6 months Richi Palma MD Start: 05-17-2016 End: 12-17-2016 Remote 30 day ecg rev/report Richi hong MD Start: 12-11-2014 End: 12-12-2014 Documentation of current medications Stephy Reyes PA-C Work Phone: Start: 12-11-2014 End: 12-11-2014 Follow Up Appt 1 year Stephy de paz PA-C Work Phone: Start: 12-11-2014 End: 12-11-2014 PFM Stephy Reyes PA-C Work Phone: Start: 10-31-2014 End: 11-05-2014 *BMP Richi Palma MD Start: 10-31-2014 End: 11-05-2014 *CBC with Differential Richi Palma MD Start: 10-31-2014 End: 11-05-2014 *Hepatic Function Panel Richi Palma MD Start: 10-31-2014 End: 12-11-2014 Chest x-ray Richi Palma MD Start: 10-31-2014 End: 11-01-2014 Documentation of current medications Richi Palma MD Start: 10-31-2014 End: 12-11-2014 Echocardiography Richi Palma MD Start: 10-31-2014 End: 12-11-2014 Electrocardiogram, complete Richi bethea MD Start: 10-31-2014 End: 10-31-2014 Follow Up Appt 1 month Richi Palma MD Start: 10-31-2014 End: 11-05-2014 Lipid panel [AGGREGATE] Richi Palma MD Start: 10-31-2014 End: 10-31-2014 MMM Richi Palma MD Start: 10-31-2014 End: 12-17-2016 Stress Echocardiogram (treadmill) Richi Palma MD Start: 10-31-2014 End: 11-05-2014 Thyroid stimulating hormone (TSH) Richi Palma MD Start: 10-31-2014 End: 11-05-2014 Thyroxine (T4) Richi Palma MD None (qualifier value) RAFFI CORNELL RESOURCE PROTECTION SPECIALIST-COMMUNITY RELATIONS ADVISOR Plan of Treatment Date Care Activity Detail Author Start: 01-01-2024 Covid-19 Vaccine () Covid-19 Vaccine () [facility] Start: 01-01-2024 Influenza vaccination Influenza Vacc ine (#1) [facility] Start: 03-06-2023 [facility] Start: 02-28-2023 [facility] Start: 03-20-2022 Urine microalbumin profile DTaP,Tdap,Td Vaccine (2 - Td or Tdap) [facility] Start: 2019 Pneumococcal Vaccine : 50+ (1 of 1 - PCV) Pneumococcal Vaccine: 50+ (1 of 1 - PCV) [facility] Start: 2019 Shingrix Vaccine (1 of 2) Malcolm grix Vaccine (1 of 2) [facility] Start: 12-26-2017 End: 12-26-2017 Appointment Appointment Group [facility] Work Phone: Start: 12-28-2016 End: 12-28-2016 Follow Up Appt 1 year Follow Up Appt 1 year [facility] Work Phone: Start: 12-28-2016 End: 12-28-2016 PFM PFM [facility] Work Phone: Start: 05-17-2016 End: 05-17-2016 Electrocardiogram, complete EKG (In office) [facility] Work Phone: Start: 05-17-2016 End: 05-17-2016 Follow Up Appt 6 months Follow Up Appt 6 months [facility] Work Phone: Start: 05-17-2016 End: 05-17-2016 Remote 30 day ecg rev/report 30 Day Holter Monitor [facility] Work Phone: Start: 12-11-2014 End: 12-11-2014 Follow Up Appt 1 year Follow Up Appt 1 year [facility] Work Phone: Start: 12-11-2014 End: 12-11-2014 PFM PFM [facility] Work Phone: Start: 10-31-2014 End: 11-05-2014 *BMP *BMP [facility] Work Phone: Start: 10-31-2014 End: 11-05-2014 *CBC with Differential *CBC with Differential [facility] Work Phone: Start: 10-31-2014 End: 11-05-2014 *Hepatic Function Panel *Hepatic Function Panel [facility] Work Phone: Start: 10-31-2014 End: 12-11-2014 Chest x-ray X-Ray, Chest, PA & Lateral [facility] Work Phone: Start: 10-31-2014 End: 10-31-2014 Echocardiography Echocardiogram (complete) [facility] Work Phone: Start: 10-31-2014 End: 12-11-2014 Electrocardiogram, complete EKG (In office) [facility] [employer] Phone: Start: 10-31-2014 End: 10-31-2014 Follow Up Appt 1 month Follow Up Appt 1 month [facility] Work Phone: Start: 10-31-2014 End: 11-05-2014 Lipid panel [AGGREGATE] *Lipid Profile CC PCP [facility] Work Phone: Start: 10-31-2014 End: 10-31-2014 MMM MMM [facility] Work Phone: Start: 10-31-2014 End: 10-31-2014 Stress Echocardiogram (treadmill) Stress Echocardiogram (treadmill) [facility] Work Phone: Start: 10-31-2014 End: 11-05-2014 Thyroid stimulating hormone (TSH) *TSH [facility] Work Phone: Start: 10-31-2014 End: 11-05-2014 Thyroxine (T4) *T4 (Total) [facility] Work Phone: Start: 2014 Diabetes Screening Diabetes Screenin g [facility] Start: 2014 Lipid panel Lipid Screening [facility] Start: 2014 Screening for malign ant neoplasm of colon [facility] Start: 2009 Screening for malign ant neoplasm of breast Mammogram Screening [facility] Start: 1990 Screening for malign ant neoplasm of cervix Cervical Cancer Screening [facility] Start: 1988 Hepatitis B Vaccine (1 of 3 - 19+ 3-dose series) Hepatitis B Vaccine (1 of 3 - 19+ 3-dose series) [facility] Start: 1987 Anxiety Screening Anxiety Screening [facility] Start: 1987 Depression Screening Depression Scre ening [facility] Start: 1987 Hepatitis C screening Hepatitis C Sc reening [facility] Start: 1987 HIV screening HIV Screening [facility] Patient Education [facility] Work Phone: Patient referral [facility] Work Phone: Removal impacted cer umen instrumentation unilat REMOVAL OF IMPACTED CERUMEN - INSTRUMENTATION Procedures Routine Impacted cerumen of right ear Ordered: 03/09/2024 [facility] Work Phone: Comment on above: Ordered: 03/09/2024 Immunizations Immunization Date Immunization Notes Care Provider Kassy downey 02-09-2021 SARS-CoV-2 mRNA (tozinameran) vaccine RAFFI GUTIERREZKINSON RESOURCE PROTECTION SPECIALIST-COMMUNITY RELATIONS ADVISOR [facility] 05-28-2020 SARS-CoV-2 mRNA (tozinameran) vaccine RAFFI BARRIOSON RESOURCE PROTECTION SPECIALIST-COMMUNITY RELATIONS ADVISOR [facility] Comment on above: Result Comment: 2021: TPV50 05-07-2020 SARS-CoV-2 mRNA (tozinameran) vaccine RAFFI CORNELL RESOURCE PROTECTION SPECIALIST-COMMUNITY RELATIONS ADVISOR [facility] Comment on above: Result Comment: 2021: TPV50 03-20-2012 tetanus toxoid, redu dre diphtheria toxoid, and acellular pertussis vaccine, adsorbed RAFFI CORNELL RESOURCE PROTECTION SPECIALIST-COMMUNITY RELATIONS ADVISOR [facility] Payers Date Payer Category Payer Self-pay [id number] 2024 Unknown [id number] 2024 Unknown [id number] 2024 Unknown [id number] 2016 Unknown [id number] Unknown [id number] Unknown [id number] Social History Date Type Detail Facility Start: 04-01-2020 End: 10-10-2023 Never smoked tobacco (finding) [facility] Start: 1970 Sex Assigned At Female [facility] Start: 10-22-2020 End: 03-06-2023 Tobacco smoking status NHIS Unknown if ever smoked [facility] Start: 03-09-2024 Tobacco use and exposure Smokeless tobacco non-user [facility] Start: 03-09-2024 End: 05-12-2024 History of Social function [facility] Start: 03-09-2024 End: 05-12-2024 Tobacco use panel [facility] Start: 1970 Sex assigned at Not on file [facility] NEGATED: Highlighted rowStart: NINF History of tobacco use Passive smoker [facility] Mental Status Date Assessment Result Facility 03-06-2023 Cognitive function Voice/Name [facility] Work Phone: 02-28-2023 Cognitive function Voice/Name [facility] Work Phone: Clinical Notes 06-15-2021 to 02-08-2025 Note Date & Type Note Facility 02-08-2025 Progress note [facility] 02-08-2025 Progress note Note Date/Time February 08, 2025 2:33pm [facility] [address] , [address] [place] [address] OFFICE VISIT Date of Service: 02/08/25 MR#: [id number] Acct: [id number] Name: SRINIVASA PINEDA Rep #: [id number] : 1970 Provider: RUT Bai Age/Sex: 54/F Location: [facility] Status: Signed Intake Vital Signs 01/21/25 15:51 02/08/25 14:27 Height 5 ft 4 in Weight: 167 lb BMI 28.6 BP 130/82 H 108/68 Blood Pressure Location Lt brachial Lt brachial Position Sitting Sitting Respiration 15 Pulse 75 76 Pulse Source Monitor NIBP Temp 98.6 F 98.3 F Temp Source Oral Oral Pulse Oximetry (%) 98 96 Oxygen Delivery Method room air room air Intake Visit Reasons: CONCERN FOR EARS PLUGGED Chief Complaint: right ear plugged Grant Administrator Required: No Is patient in pain?: No Allergies Penicillins Allergy (Verified 02/08/25 14:28) Swelling venom-honey bee (bee venom (honey bee)) Allergy (Verified 02/08/25 14:28) Swelling Medications ?Medication ?Instructions ?Recorded ?Confirmed ?Type aspirin 81 mg tablet,delayed 81 mg PO DAILY 03/03/23 0 01/21/25 History release (Adult Aspirin Regimen) paroxetine HCl 10 mg tablet 10 mg PO DAILY 04/11/23 History amlodipine 5 mg tablet 5 mg PO DAILY #90 TABLETS 01/21/25 Rx metoprolol succinate 25 mg 25 mg PO BID #180 TABLETS 1 05/20/23 01/21/25 Rx tablet,extended release 24 hr cefdinir 300 mg capsule 300 mg PO BID 10 days #20 ca ps 02/08/25 02/08/25 Rx Is last menstrual period known: No Post menopausal: Yes Patient : No Have you fallen in the past year?: No Nurse's Note: right ear plugged x 2 weeks. denies pain, drainage, fever. pt treated for sinus infection approx 1-1 1/2 weeks ago with zpak and informed that should helpwith ear. all other s/s have resolved PFSH Medical History (Updated 01/21/25 @ 17:01 by Kaushik Mohan PA, PA) Acute frontal sinusitis, unspecified Acute otitis media, right Physical exam, pre-employment COVID-19 (~08/2019) Nonrheumatic mitral (valve) prolapse Palpitations Nonrheumatic mitral valve regurgitation Family History Father COPD (chronic obstructive pulmonary disease) Sister Cancer lung, brain, adrenal Mother Colon cancer Social History (Updated 11/27/24 @ 10:31 by Reshma Harris) Smoking Status: Never smoker alcohol intake: never substance use type: does not use caffeine: Yes Type: carbonated beverages Number of servings: 2 and coffee what type of physical activity do you participate in: none do you feel safe at home: Yes HPI HPI Chief Complaint: right ear plugged Details: SRINIVASA PINEDA, is a 54 F who presents to the office today for complaint of ongoing right ear plugging sensation. Patient was here approximately 3 weeks ago for a sinus infection and right ear infection and was given azithromycin. Patient states that all of her symptoms are other than the right ear plugging and hearing loss has improved. She denies otorrhea. No fever, chills or sweats. No cough, shortness of breath or difficulty breathing. No other associated symptoms or alleviating/aggravating factors. ROS Const Constitutional: No other (as above) Exam Const General: cooperative and healthy appearing [facility] Head: normal to inspection Ears: hearing grossly normal bilaterally, EAC's normal and TM abnormal bulging on the right and with fluid behind the TM on the right Nose: nasal discharge purulent Mouth: oral mucosae normal Throat: abnormal tonsil bilaterally erythema and hypertrophy 1+ and postnasal drainage Resp Effort & Inspection: normal respiratory effort Auscultation: Bilateral: Clear to Auscultation Cardio Rate: regular rate Rhythm: regular rhythm Neuro General: patient alert Psych Appearance: grossly normal Mental Status: mental status grossly normal Coding Level of Care Code Off vis,est,level 3 Diagnoses Acute otitis media, right H66.91 Assessment and Plan Assessment and Plan (1) Acute otitis media, right: Status: Acute Plan: Cefdinir as prescribed today. Encouraged to get plenty of rest, drink lots of clear liquids, and use Tylenol or Ibuprofen (unless contraindicated) for fever and comfort. Patient also educated on other symptomatic management techniques. To be seen in 7-10 days if no improvement; sooner if worsening of symptoms. Patient advised of potential red flags and when appropriate to report to the ED. Patient verbalized understanding and agreement with all the above. Medications: New cefdinir 300 mg PO BID 20 caps 0RF 10 days Clinical Quality Measures Falls Risk Screening/Assistive Devices Have you fallen in the past year?: No 02/08/25 9274 <Electronically signed by Freddie BETTENCOURT> Date _ Freddie BETTENCOURT Cosigner Signature: Date (if applicable) CC: ~ [facility] [place] [employer] Work Phone: 1(456) 512-169109-22-2025 Evaluation note* Diagnosis Onset Date Resolution Status Admit Date Acute frontal sinusitis, unspecified acute January 21, 2025 3:23pm Acute otitis media, right acute January 21, 2025 3:23pm Acute otitis media, right acute February 08, 2025 2:21pm [facility]] Services Work Phone: 1(417) 546-562409-22-2025 [facility] [address], [address] [place] [address] OFFICE VISIT Date of Service: 01/21/25 MR#: [id number] Acct: [id number] Name: SRINIVASA PINEDA Rep #: [id number] : 1970 Provider: RUT Valdivia Age/Sex: 54/F Location: [facility] Status: Signed Intake Vital Signs 10/10/23 15:02 01/21/25 15:51 Height 5 ft 4 in 5 ft 4 in Weight: 167 lb BMI 28.6 BP 130/82 H Blood Pressure Location Lt brachial Position Sitting Pulse 75 Pulse Source Monitor Temp 98.6 F Temp Source Oral Pulse Oximetry (%) 98 Oxygen Delivery Method room air Intake Visit Reasons: HEAD CONGESTION Chief Complaint: Congestion Accompanied by: Self Allergies Penicillins Allergy (Verified 01/21/25 15:47) Swelling venom-honey bee (bee venom (honey bee)) Allergy (Verified 01/21/25 15:47) Swelling Medications ?Medication ?Instructions ?Recorded ?Confirmed ?Type aspirin 81 mg tablet,delayed 81 mg PO DAILY 03/03/23 0 01/21/25 History release (Adult Aspirin Regimen) paroxetine HCl 10 mg tablet 10 mg PO DAILY 04/11/23 History amlodipine 5 mg tablet 5 mg PO DAILY #90 TABLETS 01/21/25 Rx metoprolol succinate 25 mg 25 mg PO BID #180 TABLETS 1 05/20/23 01/21/25 Rx tablet,extended release 24 hr azithromycin 250 mg tablet 250 mg PO .COMPLEX #12 tabs 01/21/25 01/21/25 Rx Nurse's Note: head pressure, sinus congestion, runny nose. [place] like was going to pass out at work yesterday. HR was 202 last night, then came down to 105. Pt stated does have HX of heart issues. [facility] Medical History (Updated 01/21/25 @ 17:01 by Kaushik BETTENCOURT, PA) Acute frontal sinusitis, unspecified Acute otitis media, right Physical exam, pre-employment COVID-19 (~08/2019) Nonrheumatic mitral (valve) prolapse Palpitations Nonrheumatic mitral valve regurgitation Family History Father COPD (chronic obstructive pulmonary disease) Sister Cancer lung, brain, adrenal Mother Colon cancer Social History (Updated 11/27/24 @ 10:31 by Reshma Harris) Smoking Status: Never smoker alcohol intake: never substance use type: does not use caffeine: Yes Type: carbonated beverages Number of servings: 2 and coffee what type of physical activity do you participate in: none do you feel safe at home: Yes HPI HPI Chief Complaint: Congestion Details: SRINIVASA PINEDA, is a 54 F who presents to the office today for 3 day AD pain, sinus pressure. Describing copious amount purulent postnasal drip. No complaints of fever, chills, sweats, lightheadedness/dizziness, nausea/vomiting. No complaints of chest pain/shortness of breath/dyspnea on exertion. No ddxd-aho-[id number] medications have been taken to assist. Non-smoker. No close contacts with similar complaints. No other associated symptoms and no other alleviating or aggravating factors. ROS Const Constitutional: No other (as above) Exam Const General: cooperative, healthy appearing and no acute distress Orientation: alert and awake [facility] Head: normal to inspection Ears: hearing grossly normal bilaterally, external ears normal, TM normal on theleft, EAC's normal and TM abnormal bulging on the right and erythematous on the right Nose: external nose normal, nares normal, septum normal and no nasal discharge Face and sinus: normal facial exam, sinuses nontender (Note describing frontal headache upon palpation forehead) and face symmetric Mouth: oral mucosae normal, lip normal, tongue normal, oropharynx normal and moist mucous membranes Throat: posterior oropharynx normal, tonsils normal, uvula midline and no postnasal drainage Eyes General: appearance normal, both eyes and all related structures Neck Neck: normal visual inspection, no meningeal signs, supple and lymphadenopathy (R>L anterior cervical lymph node swelling/tender to palpation) Neck mass: No Thyroid: thyroid normal Chest Chest palpation & inspection: normal inspection of the chest Resp Effort & Inspection: normal respiratory effort and able to speak in complete sentences Auscultation: Bilateral: Clear to Auscultation Cardio Palpation: normal PMI Rate: regular rate Rhythm: regular rhythm Heart Sounds: S1 normal, S2 normal, no gallops, no murmurs and no rubs Pulses: radial pulses present GI Inspection: normal to inspection Palpation: soft and no hepatosplenomegaly Skin General: no rashes or lesions noted Neuro General: patient alert and patient awake Cognition: normal cognition Speech: speech normal Extrem General: normal to inspection Psych Appearance: grossly normal Mental Status: mental status grossly normal Mood: congruent mood Affect: normal affect Speech and Movement: speech and movement normal Attitude: cooperative Coding Level of Care Code Off vis,new,level 3 Diagnoses Acute otitis media, right H66.91 Acute frontal sinusitis, unspecified J01.10 Assessment and Plan Assessment and Plan (1) Acute otitis media, right: Status: Acute (2) Acute frontal sinusitis, unspecified: Status: Acute Plan: Azithromycin as prescribed today. Supportive measures as instructed today. Follow-up with PCP in 3 to 5 days should symptoms not improve, sooner should symptoms only worsen or any other concerns develop. Patient states acknowledging understanding all the above. This note was generated with [employer] dictation software. It may contain incorrectwords, spelling, and punctuation that were not noted in checking the note beforesigning. Medications: New azithromycin 2 tablets (500 mg) on day 1, then 1 tablet daily on days 2 through 11 12 tabs 0RF 01/21/25 1702 s RUT BETTENCOURT> Date _ Kaushik BETTENCOURT Cosigner Signature: Date (if applicable) CC: ~ [facility]09-22-2025 Progress note Author Kaushik Mohan [facility] Note Date/Time January 21, 2025 4:19pm [facility] [address], [address] [place] [address] OFFICE VISIT Date of Service: 01/21/25 MR#: [id number] Acct: [id number] Name: SRINIVASA PINEDA Rep #: [id number] : 1970 Provider: RUT Valdivia Age/Sex: 54/F Location: [facility] Status: Signed Intake Vital Signs 10/10/23 15:02 01/21/25 15:51 Height 5 ft 4 in 5 ft 4 in Weight: 167 lb BMI 28.6 BP 130/82 H Blood Pressure Location Lt brachial Position Sitting Pulse 75 Pulse Source Monitor Temp 98.6 F Temp Source Oral Pulse Oximetry (%) 98 Oxygen Delivery Method room air Intake Visit Reasons: HEAD CONGESTION Chief Complaint: Congestion Accompanied by: Self Allergies Penicillins Allergy (Verified 01/21/25 15:47) Swelling venom-honey bee (bee venom (honey bee)) Allergy (Verified 01/21/25 15:47) Swelling Medications ?Medication ?Instructions ?Recorded ?Confirmed ?Type aspirin 81 mg tablet,delayed 81 mg PO DAILY 03/03/23 0 01/21/25 History release (Adult Aspirin Regimen) paroxetine HCl 10 mg tablet 10 mg PO DAILY 04/11/23 History amlodipine 5 mg tablet 5 mg PO DAILY #90 TABLETS 01/21/25 Rx metoprolol succinate 25 mg 25 mg PO BID #180 TABLETS 1 05/20/23 01/21/25 Rx tablet,extended release 24 hr azithromycin 250 mg tablet 250 mg PO .COMPLEX #12 tabs 01/21/25 01/21/25 Rx Nurse's Note: head pressure, sinus congestion, runny nose. [place] like was going to pass out at work yesterday. HR was 202 last night, then came down to 105. Pt stated does have HX of heart issues. [facility] Medical History (Updated 01/21/25 @ 17:01 by Kaushik BETTENCOURT, PA) Acute frontal sinusitis, unspecified Acute otitis media, right Physical exam, pre-employment COVID-19 (~08/2019) Nonrheumatic mitral (valve) prolapse Palpitations Nonrheumatic mitral valve regurgitation Family History Father COPD (chronic obstructive pulmonary disease) Sister Cancer lung, brain, adrenal Mother Colon cancer Social History (Updated 11/27/24 @ 10:31 by Reshma Harris) Smoking Status: Never smoker alcohol intake: never substance use type: does not use caffeine: Yes Type: carbonated beverages Number of servings: 2 and coffee what type of physical activity do you participate in: none do you feel safe at home: Yes HPI HPI Chief Complaint: Congestion Details: SRINIVASA PINEDA, is a 54 F who presents to the office today for 3 day AD pain, sinus pressure. Describing copious amount purulent postnasal drip. No complaints of fever, chills, sweats, lightheadedness/dizziness, nausea/vomiting. No complaints of chest pain/shortness of breath/dyspnea on exertion. No oexi-nea-qiwaasn medications have been taken to assist. Non-smoker. No close contacts with similar complaints. No other associated symptoms and no other alleviating or aggravating factors. ROS Const Constitutional: No other (as above) Exam Const General: cooperative, healthy appearing and no acute distress Orientation: alert and awake HENMT Head: normal to inspection Ears: hearing grossly normal bilaterally, external ears normal, TM normal on theleft, EAC's normal and TM abnormal bulging on the right and erythematous on the right Nose: external nose normal, nares normal, septum normal and no nasal discharge Face and sinus: normal facial exam, sinuses nontender (Note describing frontal headache upon palpation forehead) and face symmetric Mouth: oral mucosae normal, lip normal, tongue normal, oropharynx normal and moist mucous membranes Throat: posterior oropharynx normal, tonsils normal, uvula midline and no postnasal drainage Eyes General: appearance normal, both eyes and all related structures Neck Neck: normal visual inspection, no meningeal signs, supple and lymphadenopathy (R>L anterior cervical lymph node swelling/tender to palpation) Neck mass: No Thyroid: thyroid normal Chest Chest palpation & inspection: normal inspection of the chest Resp Effort & Inspection: normal respiratory effort and able to speak in complete sentences Auscultation: Bilateral: Clear to Auscultation Cardio Palpation: normal PMI Rate: regular rate Rhythm: regular rhythm Heart Sounds: S1 normal, S2 normal, no gallops, no murmurs and no rubs Pulses: radial pulses present GI Inspection: normal to inspection Palpation: soft and no hepatosplenomegaly Skin General: no rashes or lesions noted Neuro General: patient alert and patient awake Cognition: normal cognition Speech: speech normal Extrem General: normal to inspection Psych Appearance: grossly normal Mental Status: mental status grossly normal Mood: congruent mood Affect: normal affect Speech and Movement: speech and movement normal Attitude: cooperative Coding Level of Care Code Off vis,new,level 3 Diagnoses Acute otitis media, right H66.91 Acute frontal sinusitis, unspecified J01.10 Assessment and Plan Assessment and Plan (1) Acute otitis media, right: Status: Acute (2) Acute frontal sinusitis, unspecified: Status: Acute Plan: Azithromycin as prescribed today. Supportive measures as instructed today. Follow-up with PCP in 3 to 5 days should symptoms not improve, sooner should symptoms only worsen or any other concerns develop. Patient states acknowledging understanding all the above. This note was generated with [employer] software. It may contain incorrectwords, spelling, and punctuation that were not noted in checking the note beforesigning. Medications: New azithromycin 2 tablets (500 mg) on day 1, then 1 tablet daily on days 2 through 11 12 tabs 0RF 01/21/25 1702 <Electronically signed by Kaushik BETTENCOURT> Date _ Kaushik BETTENCOURT Cosigner Signature: Date (if applicable) CC: ~ [place] [employer] Work Phone: 1(746) 854-255901-11-2025 NoteHNO ID: [id number] Author: RENE GAYLE MD Service: ? Author Type: Physician Type: Progress Notes Filed: 05/12/2024 15:07 Note Text: Patient presents with: Ear Pain: R ear pain, runny nose, cough HPI: Had a URI a few weeks ago. She is concerned about having fluid in her right ear because of ongoing discomfort. She had fluid persist behind her eardrum after a cold earlier last year. Positive symptoms: Double cough, right earache, Rhinorrhea, Negative symptoms: Shortness of breath, Chest pain, Sore throat, Fever, hearing change OTC: none recently. Her blood pressure was elevated when checked today and went higher after rechecking-Currently normal. MEDICATIONS: Current Outpatient Medications Medication Sig amLODIPine (NORVASC) 5 mg tablet Take 1 tablet by mouth every afternoon. PARoxetine (PAXIL) 10 mg tablet Take 1 tablet by mouth every afternoon. metoprolol succinate ER (TOPROL XL) 25 mg 24 hr tablet Take 25 mg by mouth two times a day. aspirin, enteric coated (ASPIRIN, ENTERIC COATED) 81 mg EC tablet Take 81 mg by mouth once daily. No current facility-administered medications for this visit. ALLERGIES: ALLERGIES Allergen Reactions Penicillins Swelling VITALS: BP 123/79 Pulse 81 Temp 36.6 ?C (97.9 ?F) Resp 18 Wt 76.2 kg (167 lb 15.9 oz) SpO2 100% PHYSICAL EXAM: GEN: Pleasant, in no acute distress. HEENT: PERRL, EOMI, conjunctiva clear Ears: canals clear. TMs without erythema, bulge, or effusion Sinuses: non-tender frontal sinus, non-tender maxillary sinuses Throat: moist mucous membranes, no erythema, no exudate Neck: supple, no thyromegaly, no lymphadenopathy HEART: regular rate, regular rhythm, no murmurs LUNGS: clear to auscultation, no wheezes or crackles, no increased WOB ASSESSMENT/PLAN: 1. Otalgia, right - ICD9: 388.70, ICD10: H92.01 Reassured of benign ear exam. Follow-up with concerning symptoms. Normal blood pressure reading. Rene Gayle [facility]01-11-2025 History of Present illness Narrative* Rene Gayle MD - 05/12/2024 2:50 PM EST Patient presents with: Ear Pain: R ear pain, runny nose, cough HPI: Had a URI a few weeks ago. She is concerned about having fluid in her right ear because of ongoing discomfort. She had fluid persist behind her eardrum after a cold earlier last year. Positive symptoms: Double cough, right earache, Rhinorrhea, Negative symptoms: Shortness of breath, Chest pain, Sore throat, Fever, hearing change OTC: none recently. Her blood pressure was elevated when checked today and went higher after rechecking-Currently normal. MEDICATIONS: Current Outpatient Medications Medication Sig amLODIPine (NORVASC) 5 mg tablet Take 1 tablet by mouth every afternoon. PARoxetine (PAXIL) 10 mg tablet Take 1 tablet by mouth every afternoon. metoprolol succinate ER (TOPROL XL) 25 mg 24 hr tablet Take 25 mg by mouth two times a day. aspirin, enteric coated (ASPIRIN, ENTERIC COATED) 81 mg EC tablet Take 81 mg by mouth once daily. No current facility-administered medications for this visit. ALLERGIES: ALLERGIES Allergen Reactions Penicillins Swelling VITALS: BP 123/79 Pulse 81 Temp 36.6 C (97.9 F) Resp 18 Wt 76.2 kg (167 lb 15.9 oz) SpO2 100% PHYSICAL EXAM: GEN: Pleasant, in no acute distress. HEENT: PERRL, EOMI, conjunctiva clear Ears: canals clear. TMs without erythema, bulge, or effusion Sinuses: non-tender frontal sinus, non-tender maxillary sinuses Throat: moist mucous membranes, no erythema, no exudate Neck: supple, no thyromegaly, no lymphadenopathy HEART: regular rate, regular rhythm, no murmurs LUNGS: clear to auscultation, no wheezes or crackles, no increased WOB ASSESSMENT/PLAN: 1. Otalgia, right - ICD9: 388.70, ICD10: H92.01 Reassured of benign ear exam. Follow-up with concerning symptoms. Normal blood pressure reading. Rene Gayle MD [facility] NoteHNO ID: [id number] Author: BHARGAVI VOGT APRN.[facility] Service: ? Author Type: Nurse Practitioner Type: Progress Notes Filed: 03/09/2024 15:39 Note Text: Subjective Female with complaints of difficulty hearing in the right ear for about 2 weeks. Patient denies any pain in his ear. Patient says it feels muffled. Patient denies any other symptoms at this time. The history is provided by the patient. No cargo inspector was used. Review of Systems Constitutional: Negative. Skin: Negative. Objective Physical Exam Constitutional: Appearance: Normal appearance. HENT: Right Ear: There is impacted cerumen. Left Ear: Hearing, tympanic membrane, ear canal and external ear normal. Pulmonary: Effort: Pulmonary effort is normal. Neurological: Mental Status: She is alert. No past medical history on file. No past surgical history on file. ALLERGIES Patient has no known allergies. MEDICATIONS amLODIPine (NORVASC) 5 mg tablet Take 1 tablet by mouth every afternoon. ketoconazole (NIZORAL) 2 % cream APPLY TO BOTH FEET DAILY FOR 30 DAYS PARoxetine (PAXIL) 10 mg tablet Take 1 tablet by mouth every afternoon. metoprolol succinate ER (TOPROL XL) 25 mg 24 hr tablet Take 25 mg by mouth two times a day. aspirin, enteric coated (ASPIRIN, ENTERIC COATED) 81 mg EC tablet Take 81 mg by mouth once daily. terbinafine HCl (LAMISIL) 250 mg tablet Take 1 tablet by mouth every afternoon. (Patient not taking: Reported on 03/09/2024) No family history on file. Social History Tobacco Use Smoking status: Never Passive exposure: Never Smokeless tobacco: Never ASSESSMENT/PLAN: 1. Impacted cerumen of right ear - ICD9: 380.4, ICD10: H61.21 - REMOVAL OF IMPACTED CERUMEN - INSTRUMENTATION Closer exam it was a small foreign body in ear. Ear was attempted to be flushed unsuccessfully by MA. Was able to remove the foreign body with an alligator forcep. It appeared to be a black tire chip from a playground. Patient says she was playing in a playground like that a couple weeks ago. Tolerated procedure and the patient said hearing is still muffled due to the water from the flushing. Will follow-up with PCP if symptoms persist. Bhargavi Vogt APRN.[facility]11-08-2024 History of Present illness Narrative* Bhargavi Vogt APRN.[employer] - 03/09/2024 2:55 PM EST Subjective Female with complaints of difficulty hearing in the right ear for about 2 weeks. Patient denies anypain in his ear. Patient says it feels muffled. Patient denies any other symptoms at this time. The history is provided by the patient. No cargo inspector was used. Review of Systems Constitutional: Negative. Skin: Negative. Objective Physical Exam Constitutional: Appearance: Normal appearance. HENT: Right Ear: There is impacted cerumen. Left Ear: Hearing, tympanic membrane, ear canal and external ear normal. Pulmonary: Effort: Pulmonary effort is normal. Neurological: Mental Status: She is alert. No past medical history on file. No past surgical history on file. ALLERGIES Patient has no known allergies. MEDICATIONS amLODIPine (NORVASC) 5 mg tablet Take 1 tablet by mouth every afternoon. ketoconazole (NIZORAL) 2 % cream APPLY TO BOTH FEET DAILY FOR 30 DAYS PARoxetine (PAXIL) 10 mg tablet Take 1 tablet by mouth every afternoon. metoprolol succinate ER (TOPROL XL) 25 mg 24 hr tablet Take 25 mg by mouth two times a day. aspirin, enteric coated (ASPIRIN, ENTERIC COATED) 81 mg EC tablet Take 81 mg by mouth once daily. terbinafine HCl (LAMISIL) 250 mg tablet Take 1 tablet by mouth every afternoon. (Patient not taking: Reported on 03/09/2024) No family history on file. Social History Tobacco Use Smoking status: Never Passive exposure: Never Smokeless tobacco: Never ASSESSMENT/PLAN: 1. Impacted cerumen of right ear - ICD9: 380.4, ICD10: H61.21 - REMOVAL OF IMPACTED CERUMEN - INSTRUMENTATION Closer exam it was a small foreign body in ear. Ear was attempted to be flushed unsuccessfully by MA. Was able to remove the foreign body with an alligator forcep. It appeared to be a black tire chipfrom a playground. Patient says she was playing in a playground like that a couple weeks ago. Tolerated procedure and the patient said hearing is still muffled due to the water from the flushing. Will follow-up with PCP if symptoms persist. Bhargavi Vogt APRN.[facility] documented [facility]10-[facility]23 Discharge summary Author Yvan Alex [facility] February 28, 2023 4:18pm Note Date/Time February 28, 2023 3 :31pm [facility] Medical Records Department [address] [place] [address] Emergency Department Summary 02/28/23 MR#: [id number] Acct: [id number] Name: SRINIVASA PINEDA Jatinder Rep #:[id number] : 1970 52 From: Yvan Alex MD PCP: Dr. Rhett Jain MD Status:REG E R Location: ED HPI History of Present Illness Chief Complaint: Palpitations Informant: patient Narrative Narrative: Patient was at work and had a sudden onset of palpitations racing heartbeat, shefound the nurse and they put her on pulse oximetry which said her pulse was 230. She was taking some deep breaths and trying to maneuvers that the nurse had herdo, but it was not going away so EMS was called. By the time they got there, the palpitations and racing resolved and she felt better. She was little lightheaded but without syncope, she was without dyspnea or chest discomfort. No recent illness or leg pain/swelling or recent travel. She is really concerned that her blood pressure was up when EMS checked it, 170s. For them, heart rate 108. She states that the total time of the episode may be lasted 10 minutes, she has had this happen before but it has been a long time and it neverlasted that long. Never been documented on the monitor in the past. She has a history of mitral valve prolapse and is on metoprolol succinate 25 mg every morning, she missed one of the doses either yesterday or the day before she cannot remember but she took it this morning and has been drinking regular coffee, after having a hiatus from it and drinking decaf only. [facility] Medical History COVID-19 (~08/2019) Nonrheumatic mitral (valve) prolapse Nonrheumatic mitral valve regurgitation Palpitations Physical exam, pre-employment Home Medications paroxetine HCl 20 mg tablet 20 mg PO QDAY 12/20/17 [History Last Taken Unknown] norethindrone 1 mg-ethinyl estradiol 35 mcg tablet (Alyacen) 1 tab PO DAILY 06/04/20 [History Last Taken Unknown] metoprolol succinate 25 mg tablet,extended release 24 hr (Toprol XL) 25 mg PO DAILY #30 tabs 11/18/22 [Rx Last Taken Unknown] Allergy/AdvReac Type Severity Reaction Status Date / Time Penicillins Allergy Swelling Verified 02/28/23 14:42 venom-honey bee Allergy Swelling Verified 02/28/23 14:42 [bee venom (honey bee)] Family History Father COPD (chronic obstructive pulmonary disease) Sister Cancer lung, brain, adrenal Mother Colon cancer Social History Smoking Status: Never smoker alcohol intake: current alcohol intake frequency: holidays/special occasions only substance use type: does not use caffeine: Yes Type: carbonated beverages Number of servings: 2 ROS ROS ED Constitutional Constitutional ED: Denies chills or fever(s) Eyes Eyes: Denies change in vision or diplopia ENT ENT ED: Denies rhinorrhea or sore throat Cardiovascular Cardiovascular: Reports lightheadedness, palpitations and racing heartbeat; Denies chest pain, leg edema or syncope Respiratory/Chest Respiratory/Chest: Denies cough or dyspnea Gastrointestinal Gastrointestinal: Denies abdominal pain, diarrhea, nausea or vomiting Genitourinary Genitourinary ED: Denies dysuria or hematuria Musculoskeletal Musculoskeletal: Denies back pain or neck pain Integumentary Denies abscess or rash Neurologic Neurologic: Denies headache(s), paresthesias or weakness Psychiatric Psychiatric: Denies anxiety or suicidal thoughts EXAM Physical Exam Const Vital Signs: 02/28/23 14:38 02/28/23 14:45 02/28/23 14:45 Temperature 97.2 F L Temperature Source Oral Pulse Rate 107 H Respiratory Rate 16 Respiratory Effort Normal Respiratory Pattern Normal Normal Blood Pressure 177/106 H Blood Pressure Mean 129 Pulse Ox 99 Oxygen Delivery Method 02/28/23 15:53 Temperature Temperature Source Pulse Rate 96 Respiratory Rate 16 Respiratory Effort Respiratory Pattern Blood Pressure 151/97 H Blood Pressure Mean 115 Pulse Ox 99 Oxygen Delivery Method Room Air Positive well nourished and well developed General Appearance ED: well developed and NAD HEENT Reports moist mucous membranes normocephalic and atraumatic Eyes PERRL and EOMs intact bilaterally Neck full ROM and supple Resp normal respiratory effort and clear to auscultation bilaterally Cardio regular rate, regular rhythm and no murmurs GI non-tender and non-distended Auscultation: normoactive bowel sounds Palpation: soft Back/Spine no CVA tenderness General Back: other FROM Extremity normal to inspection General Extremety ED: Negative for edema, pulses abnormal or tenderness General Extremity: Negative for edema or pulses abnormal Neuro oriented x3, CN's II-XII intact bilaterally and no sensory deficits noted Sensorium / Orientation: awake and alert Motor Exam: strength 5/5 throughout Skin no rashes or lesions noted and no wounds MDM MDM MDM Narrative Medical decision making narrative: Basic labs are normal, her EKG is normal. Her tachycardia resolved with time, and she had no recurrent symptoms. 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 Did not feel irregular to her. She follows with cardiology. I would have her follow-up, continue her metoprolol, and it would not be unreasonable to go back to decaf coffee. In reviewing outpatient cardiology visit, she has a history of palpitations, thepatient states being on metoprolol has helped that, she had rare ectopy on her Holter from 2018, she did not have any dysrhythmias although she indicates the symptoms have happened before just did not last this long. At this time I wouldnot change any of her medications based on what I am seeing. History & Record Review Additional record(s) reviewed:: Prior outpatient record Lab Data Attestation: I reviewed the patient's lab results. Labs: Laboratory Results - last 24 hr 02/28/23 15:38 WBC 7.0 RBC 4.61 Hgb 14.1 Hct 42.1 MCV 91.3 MCH 30.6 MCHC 33.5 RDW Std Deviation 43.2 RDW Coeff of Kate 13.0 Plt Count 227 MPV 12.1 H Immature Gran % (Auto) 0.300 Neut % (Auto) 60.4 Lymph % (Auto) 28.1 [place] % (Auto) 9.2 Eos % (Auto) 1.4 Baso % (Auto) 0.6 Absolute Neuts (auto) 4.3 Absolute Lymphs (auto) 1.98 Nucleated RBC % 0 Sodium 143 Potassium 3.5 Chloride 112 H Carbon Dioxide 29.0 Anion Gap 2 L BUN 15 Creatinine 0.83 Estim Creat Clear Calc 67.69 Est GFR (MDRD) Af Amer 92 Est GFR (MDRD) Non-Af 76 BUN/Creatinine Ratio 18.0 Glucose 87 Calcium 9.0 Rhythm Strip Rhythm Strip: Sinus Tach Rate: 101 Ectopy: None EKG Initial EKG: Attestation: I personally reviewed and interpreted this EKG as follows: Interpretation: No Acute Injury Pattern and Sinus Tachycardia (Otherwise normal EKG) Prior: No Prior Discharge Plan Triage Chief Complaint: Palpitations Other Complaint: Hypertension ED Provider: Yvan Alex Dx/Rx/DC Orders Clinical Impression: Rapid palpitations Instructions: ED Understanding Supraventricular Tachycardia (SVT) Prescriptions: No Action paroxetine HCl 20 mg tablet 20 mg PO QDAY Alyacen (28) 1-35 mg-mcg tablet 1 tab PO DAILY metoprolol succinate [Toprol XL] 25 mg tablet extended release 24 hr 25 mg PO DAILY Qty: 30 11RF Primary Care Provider: Rhett Jain Referrals: Rhett Jain MD [Primary Care Provider] - Stephy Reyes PA [Med Staff - Adv Practice Prof] - As soon as possible (call for appt) Disposition Disposition: Home, Self Care What to do if you have Problems For any increased pain, shortness of breath, bleeding, nausea or vomiting, chestpain, or any unexpected problems, contact your Primary Care Provider. Call [facility] ([phone]) or report to the closest Emergency Room. Call 911 if necessary. 02/28/23 1618 <Electronically signed by Yvan Alex MD> Cosigner Signature (if applicable): CC: Dr. Rhett Jain MD; RUT Gomez ~ Signed [facility] Work Phone: 1(630) 157-731005-06-2022 Note. MICRO - Microbiology PROCEDURE: Affirm Pathogens DNA Direct Probe [*1] SOURCE: Vaginal Fluid BODY SITE: Cervix COLLECTED DATE/TIME: 09/02/2021 15:32 EDT RECEIVED DATE/TIME: 09/03/2021 12:52 EDT START DATE/TIME: 09/03/2021 12:52 EDT FREE TEXT SOURCE: FINAL REPORTS Final Report [] Verified Date/Time/Personnel: 09/04/2021 11:00 EDT Shagufta species DNA Probe Negative Gardnerella vaginalis DNA Probe Positive Trichomonas vaginalis DNA Probe Negative Performing Locations *1: This test was performed at: [address], [address]- , [facility] ([place])06-16-2021 Note. MICRO - Microbiology PROCEDURE: Affirm Pathogens DNA Direct Probe [*1] SOURCE: Vaginal Fluid BODY SITE: Cervix COLLECTED DATE/TIME: 06/15/2021 16:12 EST RECEIVED DATE/TIME: 06/15/2021 20:41 EST START DATE/TIME: 06/15/2021 20:41 EST FREE TEXT SOURCE: FINAL REPORTS Final Report [] Verified Date/Time/Personnel: 06/16/2021 09:37 EST Gardnerella vaginalis DNA Probe Positive Trichomonas vaginalis DNA Probe Negative Shagufta species DNA Probe Negative Performing Locations *1: This test was performed at: [address], [address]- , [facility] ([place])06-15-2021 Evaluation + Plan note Future Scheduled Tests Laboratory* Pathology Surfacing Machine Operator Request 06/15/21 Radiology* MA Mammo Screening Bilateral w/ Quintin 06/15/21 [facility] 02-14-2022 Evaluation + Plan note Future Scheduled Tests Laboratory* Pathology Surfacing Machine Operator Request 06/15/21 Radiology* MA Mammo Screening Bilateral w/ Quintin 06/15/21 [facility] Evaluation noteNo assessment information available [facility] Work Phone: Evaluation note* Diagnosis Impacted cerumen of right ear- Primary Impacted cerumen [facility] Diagnosis Otalgia, right- Primary [facility]* Diagnosis Onset Date Resolution Status Admit Date Acute frontal sinusitis, unspecified acute January 21, 2025 3:23pm Acute otitis media, right acute January 21, 2025 3:23pm [facility] Work Phone: Hospital course Narrative No data available for this section [facility] Hospital Discharge instructions No data available for this section [facility] Hospital Discharge instructions Additional Instructions Continue following up. Follow-up with cardiology. Return here for any worsening symptomsCommunity [facility] Work Phone: Progress note No data available for this section [facility] Reason for referral (narrative)No reason for referral information availableO[facility] Work Phone: Summary Purpose Family History Relationship Condition Age at Onset Recorded Date/T mena father Chronic obstructive pulmonary disease Unk nown sister Malignant neoplasm Unknown mother Malignant neoplasm of colon Unknown Advance Directives Advance Directive Response Recorded Date/ Time Living Will Yes February 28 2:45pm Power of Human Service Worker No February 28, 2023 2:45pm Advance Directive Response Recorded Date/ Time Living Will Yes March 06 11:55am Power of Human Service Worker No March 06, 2023 11:55am Chief Complaint and Reason for Visit Chief Complaint SCREENING Chief Complaint hypertension and pal pitations Chief Complaint hypertension and pal pitations arm pain, chest discomfort Chief Complaint hypertension and pal pitations arm pain, chest discomfort RAPID PALPITATIONS Other forms of dyspnea Chief Complaint Admit Date HEAD CONGESTION January 21, 2025 3:23pm Reason for Visit Admit Date Acute frontal sinusitis, unspecified Sep 2024 3:23pm Acute otitis media, right December 3:23pm Chief Complaint Admit Date HEAD CONGESTION January 21, 2025 3:23pm CONCERN FOR EARS PLUGGED February 08, 2 025 2:21pm Reason for Visit Admit Date Acute frontal sinusitis, unspecified Sep 2024 3:23pm Acute otitis media, right December 3:23pm Acute otitis media, right February 08, 2025 2:21pm Additional Source Comments INFORMATION SOURCE (unrecogn ized section and content) DATE CREATED AUTHOR 11/24/2018 [employer] DATE CREATED AUTHOR AUTHOR'S ORGANIZ ATION 09/07/2021 [facility] ([place]) DATE CREATED AUTHOR AUTHOR'S ORGANIZ ATION 05/16/2024 [facility] DATE CREATED AUTHOR AUTHOR'S ORGANIZ ATION 02/10/2025 [facility] Care Team (unrecognized sect ion and content) Team Status: Active Member Role Status Dates Dr. Rhett Jain MD Family Provider Active Dr. Rhett Jain MD Primary Care Provider Active Team Status: Inactive Member Role Status Dates Dr. Rhett Jain MD Primary Care Provider Active Dr. Yvan Alex MD Emergency Provider Active Team Status: Active Member Role Status Dates Dr. Rhett Jain MD Family Provider Active Bettina Lemons MD UROLOGIST-C Primary Care Provider Active Team Status: Inactive Member Role Status Dates Bettina Lemons MD UROLOGIST-C Primary Care Provider Active Dr. Joleen Peguero DO Emergency Provider Active Team Status: Inactive Member Role Status Dates Dr. Rhett Jain MD Primary Care Provider Active Dr. Yvan Alex MD Attending Provider, Emergency Provider Active Team Status: Active Member Role Status Dates Bettina Lemons MD UROLOGIST-C Primary Care Provider Active Dr. Pushpa Gonzáles MD Attending Provider Active Team Status: Inactive Member Role Status Dates RUT Loo Attending Provider, Referr ing Provider Active Bettina Lemons MD UROLOGIST-C Primary Care Provider Active Team Status: Inactive Member Role Status Dates Bettina Lemons MD UROLOGIST-C Primary Care Provider Active Dr. Joleen Peguero DO Attending Provider, Emergency P carmen Active Team Status: Active Member Role Status Dates Bettina Lemons MD UROLOGIST-C Primary Care Provider Active RUT Loo Attending Provider, Referr ing Provider Active [employer] Relationship Specialty Start Date End Date Jessee Alan DO [address] [place] [id number] PCP - General Family Medicine 03/09/24 [employer] Relationship Specialty Start Date End Date Jessee Alan DO [address] [place] [id number] PCP - General Family Medicine 03/09/24 Team Status: Active Member Role/Relationship Status Dates Dr. Rhett Jain MD Primary care physician Active KAYLA Oshea Primary care physician Active Team Status: Inactive Member Role/Relationship Status Dates KAYLA Oshea Primary care physician Active Start: October 30, 2024 Dr. Johanny Wyman MD Attending physician Active Start: October 30, 2024 Team Status: Inactive Member Role/Relationship Status Dates KAYLA Oshea Primary care physician Active Start: January 21, 2025 End: January 21, 2025 KAYLA Oshea Referring Provider Active St art: January 21, 2025 End: January 21, 2025 Kaushik BETTENCOURT PA Attending physician Active Start: January 21, 2025 End: January 21, 2025 Team Status: Inactive Member Role/Relationship Status Dates KAYLA Oshea Primary care physician Active Start: February 08, 2025 End: February 08, 2025 KAYLA Oshea Referring Provider Active St art: February 08, 2025 End: February 08, 2025 RUT Song Attending physician Active St art: February 08, 2025 End: February 08, 2025 Goals (unrecognized section and content) Goals may be documented in a n alternate section Source Comments (unrecognize d section and content) In the event this informatio n is protected by the Federal Confidentiality of Alcohol and Drug Abuse Patient Records regulations: The Federal rules restrict any use of the information to criminally investigate or prosecute any alcohol or drug abuse patient.[facility] the event this information is protected by the Federal Confidentiality of Alcohol and Drug Abuse Patient Records regulations: The Federal rules restrict any use of the information to criminally investigate or prosecute any alcohol or drug abuse patient.[facility] Reason for Visit (unrecogniz ed section and content) Reason Comments Right ear discomfort Inability to hear, feels full X 2 weeks Reason Comments Ear Pain R ear pain, runny no se, cough FOR RECORDS PERTAINING TO PATIENTS WHO ARE OR HAVE BEEN ENROLLED IN A CHEMICAL DEPENDENCY/SUBSTANCEABUSE PROGRAM, SOME INFORMATION MAY BE OMITTED. This clinical summary was aggregated from multiple sources. Caution should be exercised in using it in the provision of clinical care. This summary normalizes information from multiple sources, and as a consequence, information in this document may materially change the coding, format and clinical context of patient data. In addition, data may be omitted in some cases. CLINICAL DECISIONS SHOULD BE BASED ON THE PRIMARY CLINICAL RECORDS. [facility] [employer] [facility]. provides no warranty or guarantee of the accuracy or completeness of information in this document.
[2025-03-14 10:03] LABS: Hematocrit 39.8 % (37-47); Hemoglobin 13.0 g/dL (12.0-15.0); Immature Granulocytes Count 0.010 X10^3/uL (0.0-0.0); Mean Corp Hgb Conc 32.7 g/dL (32-36); Mean Corpuscular Volume 92.8 fL (81-99); Mean Platelet Vol. 11.8 fl (6.2-12.0); NRBC Flagged by Analyzer 0 % (0-5); Platelet Count 225 K/mm3 (150-450); RBC Distribution Width CV 13.2 % (11.6-14.6); RBC Distribution Width SD 44.7 fl (35.1-43.9); Red Blood Count 4.29 M/mm3 (4.2-5.4); White Blood Count 5.1 K/mm3 (4.4-11.0)
[2025-03-14 11:08] LABS: Anion Gap 8 (5-15); BUN 16 mg/dL (4-19); BUN/Creat Ratio 24.3 RATIO (10-20); Calcium,Total 9.6 mg/dL (7.6-11.0); Carbon Dioxide 27.5 mmol/L (21.0-32.0); Chloride 109 mmol/L (98-108); Ferritin 61 ng/mL (22-378); Glucose 89 mg/dL (70-99); Iron 109 ug/dL (50-170); Iron Binding Capacity,Total 289 ug/dL (250-450); Iron Binding Capacity,Unsat 180 ug/dL (228-428); Magnesium 2.2 mg/dL (1.5-2.2); Potassium 4.2 mmol/L (3.3-5.1)
== END | disposition home or self-care (01) ==
LOC: LAB 09:00
PROVIDERS: PCP Nurse Practitioner Family; Referring Provider Nurse Practitioner Family; Visit Provider Nurse Practitioner Family
DX: I34.1 Nonrheumatic mitral (valve) prolapse (principal); R00.2 Palpitations
CPT/HCPCS: 36415; 80048; 82728; 83540; 83550; 83735; 84439; 84443; 85025

== ENCOUNTER → 2025-04-09 | Outpatient (CLI) | payer MEDICAID, SELFPAY ==
--- NOTE | 2025-04-09 14:33 | ECHOD_ITS ---
Reason For Study Reason For Study: MVP Procedure This was a 2D Doppler, Color Flow transthoracic echocardiogram. The patient is in sinus rhythm. Exam performed in department. Left Ventricle Normal-sized left ventricle. Left ventricular EF by Garcia's biplane: 62%. Normal diastolic function. No regional wall motion abnormalities noted. Right Ventricle Normal right ventricle. Normal systolic function. RVSP is less than 25 mmHg. Atria The left and right atria are normal. Right atrial pressure estimated at: 3 mmHg. Normal atrial septum. Mitral Valve Borderline mitral valve prolapse. Mild mitral regurgitation. No mitral stenosis. Tricuspid Valve Normal tricuspid valve. Trace tricuspid regurgitation. No tricuspid stenosis. Aortic Valve Trileaflet aortic valve. No hemodynamically significant aortic stenosis. Mild- moderate aortic regurgitation. Pulmonic Valve Normal pulmonic valve. Mild pulmonic regurgitation. No pulmonic stenosis. Great Vessels Normal sized aortic root. Normal ascending aorta. Pericardium/Pleural No pericardial effusion. MMode/2D Measurements & Calculations LVIDd: 4.1 cm IVSd: 1.0 cm LVOT diam: 2.2 cm LVIDs: 2.5 cm LVPWd: 0.94 cm LVOT area: 3.7 cm2 RVDd: 3.0 cm FS: 39.2 % Ao root diam: 3.3 cm asc Aorta Diam: 3.7 cm LAV(MOD- bp): 50.2 ml LAV(MOD- bp) Indexed: 27.5 ml/m2 LAV(MOD- sp2): 53.7 ml LAV(MOD- sp4): 42.3 ml LVAd ap4: 22.8 cm2 LVAd ap2: 21.4 cm2 EDV(MOD- bp): 56.0 ml LVLd ap4: 7.4 cm LVLd ap2: 7.2 cm ESV(MOD- bp): 21.6 ml EDV(MOD-sp4): 57.3 ml EDV(MOD-sp2): 53.3 ml EF(MOD- bp): 61.5 % EDV(sp4-el): 59.6 ml EDV(sp2-el): 53.8 ml LVAs ap4: 12.7 cm2 LVAs ap2: 11.6 cm2 LVLs ap4: 6.0 cm LVLs ap2: 6.0 cm ESV(MOD-sp4): 23.7 ml ESV(MOD-sp2): 19.7 ml ESV(sp4-el): 22.8 ml ESV(sp2-el): 19.1 ml EF(MOD-sp4): 58.6 % EF(MOD-sp2): 63.1 % EF(sp4-el): 61.7 % SV(MOD-sp4): 33.5 ml SV(MOD-sp2): 33.6 ml SV(sp4- el): 36.8 ml SI(MOD-sp4): 18.4 ml/m2 SI(MOD-sp2): 18.4 ml/m2 Ao sinus diam: 3.[address] Junction: 3.0 cm LA A4 area: 18.2 cm2 LA dimension(2D): 4.0 cm RA A4 area: 16.1 cm2 Time Measurements MV dec time: 0.20 sec Doppler Measurements & Calculations MV E max jarrett: 65.4 cm/sec Lat Peak E' Jarrett: 12.7 cm/sec Med Peak E' Jarrett: 10.1 cm/sec MV A max jarrett: 69.5 cm/sec E/E' lat: 5.2 E/E' med: 6.5 MV E/A: 0.94 MV dec slope: 326.3 cm/sec2 Ao V2 max: 155.4 cm/sec AI max jarrett: 497.6 cm/sec Ao max P.7 mmHg AI max P.1 mmHg Ao V2 mean: 97.7 cm/sec AI dec slope: 338.2 cm/sec2 Ao mean P.5 mmHg AI P1/2t: 430.9 msec Ao V2 VTI: 31.5 cm AV (velocity ratio): 0.69 DIEGO(I,D): 2.6 cm2 DIEGO(V,D): 2.5 cm2 LV V1 max: 102.6 cm/sec SV(LVOT): 81.5 ml PA V2 max: 59.0 cm/sec LV V1 max P.2 mmHg LV V1 mean P.3 mmHg LV V1 mean: 69.6 cm/sec LV V1 VTI: 21.9 cm PI end-d jarrett: 60.6 cm/sec TR max jarrett: 207.8 cm/sec TR max P.3 mmHg ECHO/Echo Complete Interpretation Summary Normal left ventricular systolic function with EF: 62% by Garcia's biplane. Normal left ventricular diastolic function Normal left ventricular wall motion Normal right ventricular systolic function Mild-moderate aortic regurgitation Mild mitral regurgitation with borderline mitral valve prolapse Recommend routine valvular disease surveillance echocardiogram in 1 to 2 years. Ordering Physician: Misha Christianson Referring Physician: Misha Christianson Performed By: Paulette Beltran RDCS
== END | disposition home or self-care (01) ==
LOC: CVS 14:30
PROVIDERS: PCP Nurse Practitioner Family; Referring Provider Nurse Practitioner Family; Visit Provider Nurse Practitioner Family
DX: I34.1 Nonrheumatic mitral (valve) prolapse (principal); R00.2 Palpitations
CPT/HCPCS: 93306